=== PATIENT | male | born 1945 | race Caucasian/White ===

== ENCOUNTER 2019-04-26 01:03 | Inpatient (IN) | payer MEDICARE, OTHER ==
[2019-04-26] MEDS ORDERED: Nitroglycerin 0.4 MG TAB (25 Tab Bottle) ONE (01:53)
[2019-04-26] MEDS ORDERED: Aspirin Chewable 81 MG TAB ONE (01:53)
[2019-04-26] MEDS ORDERED: Morphine 4 MG/ML VIAL ONE ×2 (01:53→03:02)
[2019-04-26] MEDS ORDERED: Ondansetron PF 4 MG/2 ML Vial ONE ×2 (02:00→11:31)
[2019-04-26] MEDS ORDERED: Piperacillin/Tazobactam 3.375 GM VIAL ONE (02:26)
[2019-04-26] MEDS ORDERED: Sodium Chloride 0.9% 100 ML ONE (02:27)
[2019-04-26 02:40] LABS: #Basophils 0.2 thou/uL (0.0-0.2); #Lymphocytes 1.7 thou/uL (1.20-3.40); #Monocytes 0.6 thou/uL (0.11-0.59); #Neutrophils 10.8 thou/uL (1.40-6.50); %Basophils 1.7 % (0.0-1.0); %Lymphocytes 12.6 % (21.0-51.0); %Monocytes 4.2 % (0.0-10.0); %Neutrophils 81.6 % (42.0-75.0); Hemoglobin 10.7 g/dL (14.0-18.0); Mean Corpuscular Hemoglobin 25.2 pg (27.0-31.0); Mean Corpuscular Volume 74.1 fL (78.0-98.0); Mean Platelet Volume 14.1 fL (7.4-10.4); Platelet Count 554 thou/uL (130-400); RBC Distribution Width 19.6 % (11.5-14.5); Red Blood Cell (RBC) Count 4.25 mill/uL (4.70-6.10); White Blood Cell (WBC) Count 13.2 thou/uL (4.8-10.8)
[2019-04-26 02:50] LABS: Anisocytosis SLIGHT = 6-15 cells (100X) (0-5/hpf); MDiff Complete? YES; Platelet Clumps MODERATE; Platelet Morphology Comment Appears Increased
[2019-04-26] MEDS ORDERED: metroNIDAZOLE 500 MG/100 ML BAG ONE (03:06)
[2019-04-26 03:08] LABS: ALT (SGPT) 15 U/L (8-55); AST (SGOT) 17 U/L (5-34); Alkaline Phosphatase 81 U/L (40-150); Anion Gap 18 mmol/L (10-20); BUN (Urea Nitrogen) 27 mg/dL (8.4-25.7); Bilirubin, Total 0.7 mg/dL (0.2-1.2); CK (CPK) 77 U/L (30-200); Calc. Creatinine Clearance 0 mL/min (70-130); Calcium 9.8 mg/dL (7.8-10.44); Carbon Dioxide 24 mmol/L (23-31); Chloride 98 mmol/L (98-107); Estimated GFR-MDRD 45; Globulin 3.7 g/dL (2.4-3.5); Glucose 133 mg/dL (83-110); Lipase 15 U/L (8-78); Potassium 4.5 mmol/L (3.5-5.1); Protein, Total 7.7 g/dL (5.8-8.1); Sodium 135 mmol/L (136-145)
[2019-04-26] MEDS ORDERED: Fentanyl 250 MCG/5 ML VIAL ONE (03:33)
[2019-04-26] MEDS ORDERED: Lidocaine 2% Jelly 5 ML TUBE ONE (03:33)
[2019-04-26] MEDS ORDERED: Bupivacaine/Epinephrine 0.25% 30 ML VIAL ONE (04:41)
--- NOTE | 2019-04-26 05:09 | HP ---
CHIEF COMPLAINT: Abdominal pain and shortness of breath. HISTORY OF PRESENT ILLNESS: Mr. Chung is a 74-year-old man who reports waking up yesterday morning around 5:30 a.m. feeling like he could not get comfortable and that when he took a deep breath, it was stretching his diaphragm in an uncomfortable way. He moved around quite a bit to find a position that was more comfortable, but even then whenever he took a deep breath, he had the abdominal discomfort. He began to feel short of breath, so he came into the emergency room last night and a plain film of the abdomen showed free-air. CT of the chest, abdomen, and pelvis were obtained. The CTA of the chest was negative for PE, but did confirm the free- air. Abdomen and pelvis showed free-air and free-fluid in the abdomen with some thickening near the gastrojejunal junction. Patient has a history of gastric bypass in 2002 and laparotomy for bowel obstruction in 2016. He received IV Zosyn and was transferred to [facility] for further care. Patient denies any fevers, chills, nausea, vomiting, or change in his bowel habits and really only complains of abdominal pain when he moves in certain ways or takes a deep breath. PAST MEDICAL HISTORY: Prostate cancer; bladder cancer; morbid obesity, which resolved after his gastric bypass in 2002, he lost 160 pounds and has kept it off. He also smokes daily about a pack a day and drinks daily 3 to 4 drinks per day, but reports no history of shakes or withdrawal or detox. PAST SURGICAL HISTORY: Laparoscopic gastric bypass in 2002, laparotomy for bowel obstruction in 2016, transurethral bladder tumor resection by Dr. Toni Alejandro in 2016. He did not undergo prostate surgery but had definitive radiation and Lupron therapy for his prostate cancer. Also, repair of a femur fracture in 2016. MEDICATIONS: None. He takes no prescription medications and does not use tiyd-evx-worytll medications on a regular basis. He specifically denies any recent use of NSAIDs, although he did receive one aspirin in the emergency room when he presented. ALLERGIES: NO KNOWN DRUG ALLERGIES. REVIEW OF SYSTEMS: Ten system review of systems is negative, except per HPI. LABORATORY DATA: White count is elevated at 13.2; hematocrit is 31.5, which is down from around 40 two years ago; and platelets are 554, which is up slightly. BUN and creatinine are 27 and 1.52, which is slightly elevated. Sodium is 135, which is a little low. I do not have any priors for comparison. Albumin is normal at 4. LFTs and other electrolytes are normal. CT images are reviewed and I agree with the written reports. ASSESSMENT: Bowel perforation with free-air and free-fluid. Suspect a marginal ulcer based on CT results. PLAN: Laparoscopic versus open repair of bowel perforation with possible bowel resection and possible ostomy depending on the source. Patient has received IV antibiotics and has been posted emergently for surgery. Inherent risks of surgery include, but are not limited to, bleeding, infection, risks of anesthesia, damage to nearby structures including bowel and blood vessels, and possible leak of any attempted repair. He understands and accepts these risks and wishes to proceed. All of his questions were answered. Of note, he had some irregularity and thickening of his bladder and will require outpatient urologic followup for this given his known history of bladder cancer. His previous urologist has retired. Job ID: [id number] [facility]
[2019-04-26] MEDS ORDERED: Promethazine HCl 25 MG/ML VIAL IM PRN ×2 (05:58→06:32)
[2019-04-26] MEDS ORDERED: Ondansetron HCl/PF 4 MG/2 ML Vial IVP PRN (05:58)
[2019-04-26] MEDS ORDERED: HYDROmorphone 2 MG/ML VIAL SLOW IVP PRN (05:58)
[2019-04-26] MEDS ORDERED: Promethazine HCl 25 MG/ML VIAL SLOW IVP PRN (05:58)
[2019-04-26] MEDS ORDERED: Morphine 4 MG/ML VIAL SLOW IVP PRN (06:32)
[2019-04-26] MEDS ORDERED: hydrALAZINE 20 MG/ML VIAL SLOW IVP PRN (06:32)
[2019-04-26] MEDS ORDERED: Dextrose 50% Abboject 50 ML SYRINGE SLOW IVP PRN (06:32)
[2019-04-26] MEDS ORDERED: Dextrose 5% in Water 1,000 ML IV PRN (06:32)
[2019-04-26] MEDS ORDERED: Ondansetron PF 4 MG/2 ML Vial IVP PRN (06:32)
[2019-04-26] MEDS ORDERED: Morphine 2 MG/ML SYRINGE SLOW IVP PRN (06:36)
[2019-04-26] MEDS ORDERED: Acetaminophen 1,000 MG in Premix Bag 1 BAG IVPB SCH (06:45)
--- NOTE | 2019-04-26 07:38 | OP ---
DATE OF PROCEDURE: 04/26/2019 PROCEDURE PERFORMED: Laparoscopic Mirza patch of gastrojejunal ulcer and abdominal washout. PREOPERATIVE DIAGNOSIS: Bowel perforation. POSTOPERATIVE DIAGNOSIS: Marginal ulcer at gastrojejunal junction. HISTORY: Mr. Chung is a 74-year-old man with a history of gastric bypass 15 years ago. He presented with a 24-hour history of abdominal pain and shortness of breath, and was found to have free air on chest x-ray. CT showed free air and free fluid with some thickening at the gastrojejunal junction. Recommendation was made to proceed to the operating room for laparoscopic washout and repair with possible bowel resection or ostomy if other pathology was found. DESCRIPTION OF PROCEDURE: After informed consent was obtained and appropriate preoperative antibiotics administered, the patient was taken to the operating room. He was placed in supine position and general endotracheal anesthesia was administered. He was prepped and draped in a standard sterile fashion and local anesthesia infused through the skin and subcutaneous tissues of the upper midline. A 5 mm incision was made and a Veress needle placed into the abdominal cavity without difficulty. Opening pressure was 3. Carbon dioxide gas easily insufflated to an intraabdominal pressure of 15, which the patient tolerated well. The Veress needle was withdrawn and a ClearVUE port advanced under direct laparoscopic vision into the abdominal cavity, which was carefully examined. The patient was noted to have slightly purulent peritonitis centered in the upper abdomen near the gastrojejunal junction. Additional dissecting trocars were placed in the right abdomen and the area carefully examined. The purulent fluid was suctioned out of the abdominal cavity and sent for Gram stain and culture. Some omental adhesions were taken down from the anterior midline and the area of the gastric pouch carefully examined. Evidence of perforation anteriorly was noted. The tissues posteriorly appeared soft and normal. The upper abdomen was irrigated to clear and the omentum, which had previously been adherent to the anterior abdominal wall, was brought up to the area of the gastrojejunal junction. This reached easily without tension and was well vascularized and healthy. A Mirza patch repair was performed over the gastrojejunal junction using a 3-0 Vicryl suture with excellent technical result. The abdomen was then copiously irrigated. In order to adequately suction in the pelvis, an additional trocar was placed in the right mid abdomen. Once all return was clear, 2 VALERIE drains were placed, 1 to the subphrenic space on the right and 1 to the pelvis. The other dissecting port was removed and hemostasis was verified. Carbon dioxide gas allowed to deflate through the upper midline trocar, which was then removed. The fascial edges of the dissecting trocar sites were easily visible due to the patient's thin body habitus. These were repaired with 0 Vicryl suture on UR6 needle under direct vision with excellent technical result. The skin was closed with 4-0 subcuticular Monocryl sutures and Dermabond dressings applied. The drains were secured with drain stitches and gauze and Tegaderm dressings placed. The patient was extubated and taken to Recovery in good condition. ESTIMATED BLOOD LOSS: Minimal. COMPLICATIONS: There were no complications. SPECIMEN: Peritoneal fluid for Gram stain and culture. Job ID: [id number] [facility]
[2019-04-26] MEDS: Piperacillin/Tazobactam 3.375 GM in Sodium Chloride 0.9% 100 ML IVPB SCH ×3 (08:51→20:26)
[2019-04-26] MEDS ORDERED: Famotidine/PF 20 mg/2ml Vial SLOW IVP SCH (09:00)
[2019-04-26] MEDS: D5 1/2 NS w/20 mEq KCL 1,000 ML IV SCH ×2 (09:01→15:00)
[2019-04-26 09:11] VITALS: BMI 19.1
--- NOTE | 2019-04-26 09:17 | CT ---
PRELIMINARY REPORT/[facility]/EMERGENCY AFTER HOURS PROCEDURE: Addendum created by Felicity Ashraf MD on 04/26/2019 3:48 AM Central Time ([place] & [place]) THIS REPORT C ONTAINS FINDINGS THAT MAY BE CRITICAL TO PATIENT CARE. The findings were verbally communicated via kim villalta conference with SHANTE CAMEJO at 3:48 AM CDT on 04/26/2019. The findings were acknowledged and understood. Initial Report created on 04/26/2019 3:24 AM Central Time ([place] & [place]) EXAM: CT Abdomen and Pelvis With Contrast EXAM DATE/TIME: 04/26/2019 2:06 AM CLINICAL HISTORY: 74 years old, male; Abdominal pain; Prior surgery; Surgery date: 6+ months; Surgery type: Gastric byp ass 2015; Patient HX: Epigastric pain when taking in a deep breath. Hs of gastric bypass in 2016 TECHNIQUE: Imaging protocol: Axial computed tomography images of the abdomen and pelvis with intravenous contras t. Coronal and sagittal reformatted images were created and reviewed. Radiation optimization: All CT scans at this facility use at least one of these dose optimization zelda hniques: automated exposure control; mA and/or kV adjustment per patient size (includes targeted exam s where dose is matched to clinical indication); or iterative reconstruction. Contrast material: [id number]; Contrast volume: 95 ml; Contrast route: IV; COMPARISON: No relevant prior studies available. FINDINGS: Lungs: No consolidations in the lung bases. Liver: No liver masses. Gallbladder and bile ducts: Normal appearance of the gallbladder. No ductal dilation. Pancreas: No pancreatic mass or ductal dilation. Spleen: No splenic masses. Adrenals: Bilateral adrenal gland thickening and enhancement. Kidneys and ureters: No enhancing mass or hydronephrosis. Stomach and bowel: Surgical changes of gastric bypass. No bowel obstruction. Thickening of the small gastric pouch and proximal jejunum at the gastrojejunal anastomosis. Appendix: The appendix is not identified. Intraperitoneal space: Large amount of free peritoneal air predominantly in the upper anterior abdome n. Small amount of free fluid in the pelvis. Vasculature: Marked atherosclerotic changes of the abdominal aorta and vasculature within infrarenal abdominal aortic aneurysm measuring up to 3.7 cm. The celiac, superior mesenteric artery and inferior mesenteric arteries are patent. Lymph nodes: No lymphadenopathy. Bladder: Irregular thickening of the bladder wall. Reproductive: Normal. Bones/joints: No suspicious bone lesions. Soft tissues: No acute findings. IMPRESSION: 1. Large amount of free peritoneal air and small amount of fluid in the pelvis. Site of perforation i s not identified; however there is thickening of the small gastric pouch and proximal gastrojejunal a nastomosis making this suspicious for site of perforation. There is no bowel obstruction. Surgical ch anges of gastric bypass. 2. Infrarenal abdominal aortic aneurysm measuring up to 3.7 cm. 3. Irregular and heterogeneous thickening of the bladder. Thank you for allowing us to participate in the care of your patient. Dictated and Authenticated by: Felicity Ashraf MD 04/26/2019 3:24 AM Central Time ([place] & [place]) FINAL REPORT ABDOMEN CT WITH CONTRAST PELVIC CT WITH CONTRAST: Date: 04/26/19 HISTORY: Gastric bypass in 2016. Epigastric pain. Chest pain. Pain upon inspiration. FINDINGS: Lung bases appear to be clear. There are coronary artery calcifications, as well as calcifications of mitral valve. There is appropriate enhancement of the solid organs. No evidence of obstructive uropathy. There is a neurysmal dilatation of the infrarenal abdominal aorta, measuring 3.4 x 3.7 cm. No periaortic fat str anding. Limited evaluation of the alimentary canal due to lack of oral contrast. There is extensive free air. The etiology is uncertain, may be associated with region of gastric bypa ss. Fullness of both adrenal glands is nonspecific. Correlate for adrenal hyperplasia. There is free fluid in the pelvis. IMPRESSION: This report is in agreement with the preliminary report by [facility]. There is evidence of intraperitoneal free air. Etiology is uncertain, but may be associated with the gastric bypass. Additional findings as described in the preliminary report by [facility]. POS: OFF
--- NOTE | 2019-04-26 09:25 | CT ---
PRELIMINARY REPORT/[facility]/EMERGENCY AFTER HOURS PROCEDURE: EXAM: CT Angiography Chest With Contrast EXAM DATE/TIME: 04/26/2019 2:06 AM CLINICAL HISTORY: 74 years old, male; Pain and condition or disease; Other: Hs of prostate cancer; Sternal or substerna l pain; Patient HX: Epigastric pain when breathing deep. TECHNIQUE: Imaging protocol: Axial computed tomographic angiography images of the chest with intravenous contras t using CT angiography protocol. Coronal and sagittal reformatted images were created and reviewed. 3D rendering: MIP reconstructed images were created and reviewed. Radiation optimization: All CT scans at this facility use at least one of these dose optimization zelda hniques: automated exposure control; mA and/or kV adjustment per patient size (includes targeted exam s where dose is matched to clinical indication); or iterative reconstruction. COMPARISON: No relevant prior studies available. FINDINGS: Pulmonary arteries: No pulmonary emboli. Aorta: No aortic aneurysm. No aortic dissection. Lungs: No consolidations. Pleural space: No pneumothorax or pleural effusion. Heart: The heart is within normal size limits. No abdnormal pericardial effusion. Intraperitoneal space: See CT abdomen and pelvis report for upper abdomen findings including large am ount of free peritoneal air. Lymph nodes: No lymphadenopathy. Bones/joints: No suspicious bone lesions or fracture. Soft tissues: Superficial 3 x 1 cm left anterior chest nodule, possibly a sebaceous cyst. IMPRESSION: 1. No evidence of a pulmonary embolism. 2. Large amount of free peritoneal air in the upper abdomen. There is a gastric bypass and the gastri c pouch and proximal jejunum at the anastomosis are thickened and there are several foci of air in th is area making this the most likely source of perforation. Additional findings in the abdomen and pelvis on separate report. Thank you for allowing us to participate in the care of your patient. Dictated and Authenticated by: Felicity Ashraf MD 04/26/2019 3:32 AM Central Time ([place] & [place]) FINAL REPORT EMERGENCY AFTER HOURS CT ANGIO CHEST PERFORMED WITH IV CONTRAST ENHANCEMENT WITH 3D RECONSTRUCTIONS: Date: 04/26/19 HISTORY: Patient has history of prostate cancer, chest pain, and shortness of breath when taking a deep breath . FINDINGS: The lungs are clear of any infiltrative process. COPD type changes are noted. No pulmonary nodules or pleural effusions are identified. There is no significant mediastinal or hilar lymphadenopathy. The thoracic aorta is normal in caliber. There is good pulmonary artery opacification and no CT evide nce for pulmonary embolus. Free intraperitoneal air is seen. This will be described in the subsequent CT abdomen report. IMPRESSION: 1. No CT evidence for pulmonary embolus. 2. Free intraperitoneal air. These findings will be described in the CT abdomen and pelvis report. This report is in agreement with the preliminary report issued by [facility].
[2019-04-26] MEDS ORDERED: Iopamidol 370 76% 100 ML VIAL ONE (11:22)
[2019-04-26] MEDS ORDERED: PROPOFOL 200 MG/20 ML VIAL ONE (11:31)
[2019-04-26] MEDS ORDERED: PHENYLEPHRINE-NS 100 MCG/ML 10 ML SYRINGE ONE (11:31)
[2019-04-26] MEDS ORDERED: Succinylcholine Chloride 20 MG/ML 10 ml SYRINGE FS ONE (11:31)
[2019-04-26] MEDS ORDERED: Rocuronium Bromide 10 MG/ML (10ML VIAL) ONE (11:31)
[2019-04-26] MEDS ORDERED: Lidocaine 1% PF 5 ML VIAL ONE (11:31)
[2019-04-26] MEDS ORDERED: Dexamethasone 20 MG/5 ML VIAL ONE (11:31)
[2019-04-26] MEDS ORDERED: Glycopyrrolate 0.2 MG/ML 5 ML SYRINGE ONE (11:31)
--- NOTE | 2019-04-26 12:01 | RAD ---
CHEST 1 VIEW: Date: 04/26/19 HISTORY: Pain. COMPARISON: None. FINDINGS: Normal cardiac silhouette. Atherosclerosis of aortic knob. Lungs are hyperinflated with chronic zendejas es. There is evidence of pneumoperitoneum. IMPRESSION: Pneumoperitoneum. POS: OFF
[2019-04-26] MEDS ORDERED: Tamsulosin HCl 0.4 MG CAP PO SCH (12:45)
[2019-04-26] MEDS: Oxazepam 10 MG CAP PO SCH ×2 (15:59→20:30)
[2019-04-26] MEDS: Micafungin 100 MG in Sodium Chloride 0.9% 100 ML IVPB SCH (16:27)
--- NOTE | 2019-04-26 16:36 | PRG ---
DATE OF SERVICE: 04/26/2019 SUBJECTIVE: This is a 74-year-old male patient, came in with a chief complaint of abdominal pain and shortness of breath. The patient was found to have gastric ulcer perforation. The patient was just brought back from the OR this morning from laparoscopic gastric ulcer perforation repair with Mirza patch of gastro- jejunum and abdominal washout. The patient has no complaints of fever, nausea, or vomiting. The patient did not pass gas yet. Pain is well controlled. The patient is able to void 30 mL since this morning. Bladder scan 4 hours after being brought back from the OR is 250 mL. OBJECTIVE: GENERAL: The patient is lying down comfortably. No signs of acute distress. The patient reports pain is well controlled, around 3/10. VITAL SIGNS: Temperature 97, pulse 68, respiratory rate 14, O2 saturations 97% on room air, blood pressure 140/70. LUNGS: Clear bilaterally. HEART: Regular rate and rhythm. ABDOMEN: Soft. Bowel sounds are diminished. EXTREMITIES: Unremarkable. LABORATORY DATA: Hemoglobin 10.7. Sodium 135, potassium 4.5, creatinine 1.5, glucose 133. DIAGNOSTIC IMAGING: There is no diagnostic imaging to be reported. ASSESSMENT: 1. Gastric ulcer perforation. 2. Postoperative day 0 laparoscopic Mirza patch at gastro-jejunum. 3. Status post gastric bypass, 2002. 4. History of prostate cancer. 5. History of heavy alcohol use. PLAN: Continue liquid diet. The patient is able to pass gas and tolerate well with liquid diet. Continue pain control. Start prophylaxis, gastritis and DVT. Follow up urine output. If the patient is unable to void and bladder scan more than 400 and the patient becomes uncomfortable, we would do in-and-out catheter. We just started Flomax to treat prostate hypertrophy. The patient is to work with PT and OT. The patient was examined and discussed with Dr. Wang on rounds this morning. Patient was started on alcohol use withraw prevention with xerax, thiamin, acid folic Job ID: [id number] [facility]
[2019-04-26] MEDS: Enoxaparin Sodium 30 MG/0.3 ML SYRINGE SC SCH (20:26)
[2019-04-26] MEDS: Pantoprazole 40 MG VIAL IVP SCH (20:27)
[2019-04-26] MEDS: Tamsulosin HCl 0.4 MG CAP PO SCH (20:27)
[2019-04-27] MEDS: D5 1/2 NS w/20 mEq KCL 1,000 ML IV SCH ×3 (00:32→20:28)
[2019-04-27] MEDS: Piperacillin/Tazobactam 3.375 GM in Sodium Chloride 0.9% 100 ML IVPB SCH ×4 (02:19→20:37)
[2019-04-27 07:58] LABS: ALT (SGPT) 10 U/L (8-55); AST (SGOT) 9 U/L (5-34); Albumin 2.9 g/dL (3.4-4.8); Alkaline Phosphatase 54 U/L (40-150); Anion Gap 9 mmol/L (10-20); BUN (Urea Nitrogen) 20 mg/dL (8.4-25.7); Bilirubin, Total 0.3 mg/dL (0.2-1.2); Calc. Creatinine Clearance 42 mL/min (70-130); Calcium 8.3 mg/dL (7.8-10.44); Carbon Dioxide 26 mmol/L (23-31); Chloride 104 mmol/L (98-107); Estimated GFR-MDRD 51; Globulin 2.9 g/dL (2.4-3.5); Glucose 108 mg/dL (83-110); Potassium 4.5 mmol/L (3.5-5.1); Protein, Total 5.8 g/dL (5.8-8.1); Sodium 134 mmol/L (136-145)
[2019-04-27 08:05] LABS: Hemoglobin 9.1 g/dL (14.0-18.0); Mean Corpuscular HGB CONC 29.4 g/dL (32.0-36.0); Mean Corpuscular Hemoglobin 24.7 pg (27.0-31.0); Mean Corpuscular Volume 83.9 fL (78.0-98.0); Mean Platelet Volume 9.3 fL (7.4-10.4); Platelet Count 317 thou/uL (130-400); RBC Distribution Width 17.7 % (11.5-14.5); Red Blood Cell (RBC) Count 3.67 mill/uL (4.70-6.10); White Blood Cell (WBC) Count 9.8 thou/uL (4.8-10.8)
[2019-04-27] MEDS: Thiamine 100 MG TAB PO SCH (08:10)
[2019-04-27] MEDS: Oxazepam 10 MG CAP PO SCH ×3 (08:10→20:37)
[2019-04-27] MEDS: Folic Acid 1 MG TAB PO SCH (08:10)
[2019-04-27] MEDS: Pantoprazole 40 MG VIAL IVP SCH ×2 (08:13→20:38)
[2019-04-27] MEDS ORDERED: Famotidine/PF 20 mg/2ml Vial SLOW IVP SCH (09:00)
[2019-04-27 10:01] LABS: #Lymphocytes 1.7 thou/uL (1.20-3.40); #Monocytes 0.6 thou/uL (0.11-0.59); #Neutrophils 7.5 thou/uL (1.40-6.50); %Basophils 0.2 % (0.0-1.0); %Eosinophils 0.3 % (0.0-10.0); %Lymphocytes 17.3 % (21.0-51.0); %Monocytes 6.1 % (0.0-10.0); %Neutrophils 76.1 % (42.0-75.0); Hypochromia MODERATE=16-30 cells (100X) (0-5/hpf); MDiff Complete? YES; Microcytosis MODERATE=15-30 cells (100X) (0-5/hpf); Platelet Morphology Comment Appears Adequate
--- NOTE | 2019-04-27 11:31 | RAD ---
XR UGI Single Contrast No Air HISTORY: Patient with a history of gastric bypass in 2002 for weight loss. Recent perforation and Gra ham patch procedure. COMPARISON: CT of 04/26/2019. FINDINGS: 15 mL of Gastrografin were given for this examination. Previous gastric bypass is noted. Co ntrast passed into the small bowel without difficulty. No evidence of extravasation. IMPRESSION: No evidence of obstruction or extravasation.
[2019-04-27] MEDS ORDERED: GASTROGRAFIN 30 ML BOT ONE (11:47)
[2019-04-27] MEDS: Micafungin 100 MG in Sodium Chloride 0.9% 100 ML IVPB SCH (15:38)
[2019-04-27] MEDS: Tamsulosin HCl 0.4 MG CAP PO SCH (20:38)
[2019-04-27] MEDS: Enoxaparin Sodium 30 MG/0.3 ML SYRINGE SC SCH (20:51)
[2019-04-28] MEDS: Piperacillin/Tazobactam 3.375 GM in Sodium Chloride 0.9% 100 ML IVPB SCH ×4 (01:05→20:44)
[2019-04-28] MEDS: D5 1/2 NS w/20 mEq KCL 1,000 ML IV SCH (01:06)
[2019-04-28] MEDS: Thiamine 100 MG TAB PO SCH (08:39)
[2019-04-28] MEDS: Pantoprazole 40 MG VIAL IVP SCH ×2 (08:39→20:45)
[2019-04-28] MEDS: Folic Acid 1 MG TAB PO SCH (08:39)
[2019-04-28] MEDS: Oxazepam 10 MG CAP PO SCH ×3 (08:39→20:44)
[2019-04-28] MEDS: Micafungin 100 MG in Sodium Chloride 0.9% 100 ML IVPB SCH (15:00)
--- NOTE | 2019-04-28 16:39 | PDOC.GSPN ---
Surgery Progress Note: Subj - Subjective Narrative: Patient feels fine. Minimal pain. Serous VALERIE drainage. Cultures are growing presumed Vivian albicans. He is on micafungin. Tolerating full liquids. Abdomen is soft and incisions are clean. We'll advance to GI soft diet. If he tolerates this, we may remove the JPs discharge him home tomorrow. I did speak with him about tobacco and alcohol cessation to reduce his risk of recurrent ulcer disease. He will need to stay on PPI therapy long-term. I will give him a couple months prescription but he will need to establish care with a primary care physician to prescribe this ongoing. I would also like to check him for H. pylori, so asked him to call the nurse to collect the specimen when he feels like he needs to have a bowel movement. He has been passing gas but has not yet had a bowel movement. Surgery Progress Note: Obj - Vital signs Vital signs: Vital Signs - Most Recent Temp Pulse Resp BP Pulse Ox 98.0 F 71 14 167/88 H 95 04/28/19 15:09 04/28/19 15:09 04/28/19 15:09 04/28/19 15:09 04/28/19 15:09 Surgery Progress Note: Results - Labs Result Diagrams: 04/27/19 07:04 04/27/19 07:04
[2019-04-28] MEDS: Tamsulosin HCl 0.4 MG CAP PO SCH (20:45)
[2019-04-28] MEDS: Enoxaparin Sodium 30 MG/0.3 ML SYRINGE SC SCH (21:07)
[2019-04-29] MEDS: Piperacillin/Tazobactam 3.375 GM in Sodium Chloride 0.9% 100 ML IVPB SCH ×4 (01:03→21:00)
[2019-04-29 05:32] LABS: #Basophils 0.1 thou/uL (0.0-0.2); #Eosinphils 0.2 thou/uL (0.0-0.7); #Lymphocytes 1.7 thou/uL (1.20-3.40); #Monocytes 0.7 thou/uL (0.11-0.59); %Basophils 0.8 % (0.0-1.0); %Eosinophils 3.4 % (0.0-10.0); %Lymphocytes 25.5 % (21.0-51.0); %Monocytes 10.9 % (0.0-10.0); %Neutrophils 59.4 % (42.0-75.0); Hemoglobin 8.8 g/dL (14.0-18.0); Mean Corpuscular HGB CONC 29.7 g/dL (32.0-36.0); Mean Corpuscular Volume 84.1 fL (78.0-98.0); Platelet Count 347 thou/uL (130-400); RBC Distribution Width 17.4 % (11.5-14.5); Red Blood Cell (RBC) Count 3.52 mill/uL (4.70-6.10); White Blood Cell (WBC) Count 6.7 thou/uL (4.8-10.8)
[2019-04-29 05:46] LABS: ALT (SGPT) 7 U/L (8-55); AST (SGOT) 9 U/L (5-34); Albumin 2.5 g/dL (3.4-4.8); Alkaline Phosphatase 49 U/L (40-150); Anion Gap 11 mmol/L (10-20); BUN (Urea Nitrogen) 8 mg/dL (8.4-25.7); Bilirubin, Total 0.4 mg/dL (0.2-1.2); Calc. Creatinine Clearance 47 mL/min (70-130); Calcium 8.2 mg/dL (7.8-10.44); Carbon Dioxide 24 mmol/L (23-31); Chloride 106 mmol/L (98-107); Estimated GFR-MDRD 59; Globulin 2.6 g/dL (2.4-3.5); Glucose 85 mg/dL (83-110); Potassium 4.2 mmol/L (3.5-5.1); Protein, Total 5.1 g/dL (5.8-8.1); Sodium 137 mmol/L (136-145)
--- NOTE | 2019-04-29 08:14 | PRG ---
DATE OF SERVICE: 04/27/2019 SUBJECTIVE: The patient is a 74-year-old male with a past history of gastric bypass on 2002, who was admitted with abdominal pain. Patient was diagnosed and lactoscopic for gastric perforation and wash out. How the patient is today. The patient explains that he is doing well today Ambulating, yes. Nausea and vomiting, none.. Pain, none. Fever, none. Having bowel movements, yes. Passing gas, yes. OBJECTIVE: VITAL SIGNS: Current temperature 98, current heart rate 88, current blood pressure 120/80, current respiratory rate 18, current O2 sat 98% room air. In and out; p.o. intake, poor intake PHYSICAL EXAMINATION: GENERAL: Well-appearing and relaxed patient. HEENT: Normocephalic, atraumatic. CARDIOVASCULAR: Regular rate and rhythm. Clear S1/S2 heard. RESPIRATORY: No respiratory distress. LUNGS: Clear to auscultation bilaterally. ABDOMEN: Soft. Nontender. Nondistended. EXTREMITIES: Warm and well perfused. NEUROLOGIC: Intact neurological. Oriented x3. IMAGING RESULTS: No new imaging to be reviewed. ASSESSMENT: The patient is a 74-year-old male with a past history of gastric bypass 15 years ago, who was admitted with abdominal pain. Clinical workup currently is notable for gastric perforation status gastric bypass PLAN: Based upon the information above, the following should be done to advance the care of the patient that fall into various category. Diagnostic tests/studies to be ordered BMP Pharmacological management. Interventions to be ordered/performed none, Other management to be conducted. Working with PT/OT. Spirometer incentive. DVT prophylaxis. Gastritis prophylaxis. Placement plan. Rehab screening is in place. Plan to discharge to rehab facility April 28, 2019 Job ID: [id number] [facility]
[2019-04-29] MEDS: Oxazepam 10 MG CAP PO SCH ×3 (08:17→21:28)
[2019-04-29] MEDS: Thiamine 100 MG TAB PO SCH (08:18)
[2019-04-29] MEDS: Pantoprazole 40 MG VIAL IVP SCH ×2 (08:18→21:28)
[2019-04-29] MEDS: Folic Acid 1 MG TAB PO SCH (08:23)
--- NOTE | 2019-04-29 14:38 | PDOC.GSPN ---
Surgery Progress Note: Subj - Subjective Narrative: Patient feels well. He is tolerating his soft diet without abdominal pain or nausea. VALERIE drainage is diminishing and is clear in color. Abdomen is soft and nontender and his incisions are healing. Assessment/plan: Doing well; from a surgical standpoint ready for discharge home , but his friends are concerned about his safety at home. He lives alone and does not have any help, and they feel that he is too weak to take care of himself. They were hoping that he could go to rehabilitation before returning home. I'm not certain that he is a rehabilitation candidate, but we will get PT OT and rehabilitation to evaluate him for this. Other options for discharge are : home with home health PT, or discharge to a nursing unit with PT. I will ask case management to help with discharge planning also. Surgery Progress Note: Obj - Vital signs Vital signs: Vital Signs - Most Recent Temp Pulse Resp BP Pulse Ox 97.4 F L 58 L 16 159/91 H 95 04/29/19 07:28 04/29/19 07:28 04/29/19 07:28 04/29/19 07:28 04/29/19 08:35 Surgery Progress Note: Results - Labs Result Diagrams: 04/29/19 04:36 04/29/19 04:36 Lab results: Laboratory Results - last 24 hr 04/29/19 04/29/19 04:36 04:36 WBC 6.7 RBC 3.52 L Hgb 8.8 L Hct 29.6 L MCV 84.1 MCH 25.0 L MCHC 29.7 L RDW 17.4 H Plt Count 347 MPV 9.0 Neutrophils % 59.4 Lymphocytes % 25.5 Monocytes % 10.9 H Eosinophils % 3.4 Basophils % 0.8 Neutrophils # 4.0 Lymphocytes # 1.7 Monocytes # 0.7 H Eosinophils # 0.2 Basophils # 0.1 Sodium 137 Potassium 4.2 Chloride 106 Carbon Dioxide 24 Anion Gap 11 BUN 8 L Creatinine 1.20 Estimated GFR (MDRD) 59 Glucose 85 Calcium 8.2 Total Bilirubin 0.4 AST 9 ALT 7 L Alkaline Phosphatase 49 Serum Total Protein 5.1 L Albumin 2.5 L Globulin 2.6 Albumin/Globulin Ratio 1.0 L
[2019-04-29] MEDS: Micafungin 100 MG in Sodium Chloride 0.9% 100 ML IVPB SCH (17:41)
[2019-04-29] MEDS: Tamsulosin HCl 0.4 MG CAP PO SCH (21:28)
[2019-04-29] MEDS: Enoxaparin Sodium 30 MG/0.3 ML SYRINGE SC SCH (21:28)
[2019-04-30] MEDS: Piperacillin/Tazobactam 3.375 GM in Sodium Chloride 0.9% 100 ML IVPB SCH ×3 (03:00→15:57)
[2019-04-30] MEDS: Pantoprazole 40 MG VIAL IVP SCH (08:38)
[2019-04-30] MEDS: Oxazepam 10 MG CAP PO SCH ×3 (08:42→21:55)
[2019-04-30] MEDS: Thiamine 100 MG TAB PO SCH (08:42)
[2019-04-30] MEDS: Folic Acid 1 MG TAB PO SCH (08:42)
--- NOTE | 2019-04-30 14:15 | PDOC.GSPN ---
Surgery Progress Note: Subj - Subjective Narrative: Awaiting insurance decision regarding placement. Tolerating diet. Pelvic VALERIE still has a fair amount of drainage but this is completely clear and serous so we'll remove both drains today. Changing Protonix to oral. Incisions look good and H. pylori is negative. Abdominal exam is benign and vitals are normal. Dr. Flowers is going to be seeing the patient over the long holiday weekend. No new surgical issues. Surgery Progress Note: Obj - Vital signs Vital signs: Vital Signs - Most Recent Temp Pulse Resp BP Pulse Ox 97.8 F 67 16 139/85 96 04/30/19 10:38 04/30/19 10:38 04/30/19 10:38 04/30/19 10:38 04/30/19 10:38 Surgery Progress Note: Results - Labs Result Diagrams: 04/29/19 04:36 04/29/19 04:36
[2019-04-30] MEDS: Micafungin 100 MG in Sodium Chloride 0.9% 100 ML IVPB SCH (16:12)
[2019-04-30] MEDS: Tamsulosin HCl 0.4 MG CAP PO SCH (21:55)
[2019-04-30] MEDS: Enoxaparin Sodium 30 MG/0.3 ML SYRINGE SC SCH (22:43)
[2019-05-01] MEDS: Folic Acid 1 MG TAB PO SCH (08:39)
[2019-05-01] MEDS: Thiamine 100 MG TAB PO SCH (08:39)
[2019-05-01] MEDS: Oxazepam 10 MG CAP PO SCH ×3 (08:40→20:11)
--- NOTE | 2019-05-01 14:22 | PRG ---
DATE OF SERVICE: 05/01/2019 SUBJECTIVE: Mr. Chung is postoperative day #5 from a laparoscopic repair of gastrojejunal ulcer (from previous gastric bypass) per Dr. Allen on April 26. He has done well following the surgery. He is tolerating a diet. He is apparently a fairly heavy smoker and drinker, which of course predisposed him to this ulcer. He notes that he has ambulating the ash and tolerating a regular diet. He denies pain. OBJECTIVE: VITAL SIGNS: On examination, he is afebrile. Pulse 61, blood pressure 180/70. LUNGS: Clear to auscultation. ABDOMEN: Soft, nontender, and nondistended. Both of his drains were removed yesterday, and the dressings are intact. LABORATORY DATA: He has not had a CBC in 2 days nor he has had comprehensive metabolic panel, but these were both stable. ASSESSMENT AND PLAN: In summary, he is doing well following his surgery. Rehabilitation has been requested and placement is pending. Since today is May 01, I am hopeful that we will have a placement decision for him tomorrow. Job ID: [id number]
[2019-05-01] MEDS: Micafungin 100 MG in Sodium Chloride 0.9% 100 ML IVPB SCH (15:39)
[2019-05-01] MEDS: Tamsulosin HCl 0.4 MG CAP PO SCH (19:59)
[2019-05-01] MEDS: Enoxaparin Sodium 30 MG/0.3 ML SYRINGE SC SCH (20:05)
[2019-05-02 07:51] VITALS: TEMP 97.6
[2019-05-02] MEDS: Folic Acid 1 MG TAB PO SCH (08:24)
[2019-05-02] MEDS: Thiamine 100 MG TAB PO SCH (08:25)
[2019-05-02] MEDS: Oxazepam 10 MG CAP PO SCH (08:25)
[2019-05-02 11:11] VITALS: BP 131/64
--- NOTE | 2019-05-02 14:54 | DIS ---
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 PROCEDURES PERFORMED: Laparoscopic Mirza patch of gastrojejunal ulcer with abdominal washout per Dr. Allen on April 26. ADMISSION HISTORY: The patient is a 74-year-old male, who had a gastric bypass 15 years ago and sustained excellent weight loss. He presented with 24-hour history of abdominal pain and shortness of breath. He had free air visible on imaging studies. He was taken to the operating room for surgical treatment. HOSPITAL COURSE: The patient underwent uneventful laparoscopic surgery per Dr. Allen. She was able to identify the ulcer and repair it. She obtained an upper GI study the following day which showed no evidence of obstruction or extravasation. The patient was begun on diet which he tolerated well and advanced uneventfully. The patient had a history of alcoholism, for which he was started on Serax to help prevent withdrawal issues. He was also heavy smoker. He did well after surgery. He requested placement in an assisted living facility, and while this was being arranged, he was maintained in the hospital. He is doing well today. He is ambulating in the ash. He is tolerating his regular diet. He has had no vomiting or abdominal pain. He has benign abdominal exam. He is discharged to the [facility]. He will follow up with Dr. Allen next week. DISCHARGE MEDICATIONS: 1. Protonix daily. 2. Serax b.i.d. 3. Flomax. Job ID: [id number]
== END 2019-05-02 14:00 | disposition short-term general hospital (02) | DRG 329 ==
LOC: SDC 01:03 → SCSER 01:03 → EDSTATUS 03:33 → SURG A 07:42
PROVIDERS: ADMIT Surgery; ATTEND Surgery
PROC: 0DU947Z Supplement Duodenum with Autologous Tissue Substitute, Percutaneous Endoscopic Approach (ICD-10-PCS; principal; 2019-04-26)
DX: K28.5 Chronic or unspecified gastrojejunal ulcer with perforation (principal); K65.9 Peritonitis, unspecified; F10.20 Alcohol dependence, uncomplicated; F17.200 Nicotine dependence, unspecified, uncomplicated; Z98.84 Bariatric surgery status; Z90.49 Acquired absence of other specified parts of digestive tract; Z87.81 Personal history of (healed) traumatic fracture
CPT/HCPCS: 36415; 71045; 71275; 74177; 74241; 80053; 82550; 83605; 83690; 84484; 85025; 85379; 87070; 87205; 87338; 93005; 96365; 96375; 96376; C9113; J0131; J0360; J1100; J1650; J2001; J2248; J2270; J2405; J2543; J2704; J3010; J3490; Q9963; Q9967; S0028

== ENCOUNTER 2019-07-09 11:37 | Outpatient (CLI) | payer MEDICARE, OTHER ==
--- NOTE | 2019-07-09 13:47 | RAD ---
ONE VIEW ABDOMEN: 07/09/19 INDICATION: History of prior abdominal surgery, pain. FINDINGS: There are loops of air filled bowel of the abdomen, in a nonspecific pattern, with air distended smal l bowel and suggestion of colonic gas, as well. There are loops of bowel that demonstrate the appeara nce of potential mural edema which may be on the basis of an acute inflammatory process. No free air is seen beneath the hemidiaphragms on the provided view. The imaged lung bases are grossly clear. The re is suture material seen at the left upper quadrant. IMPRESSION: Air distended bowel throughout the abdomen. Component of mural edema may relate to an acute infectiou s/inflammatory process. Consider CT exam of abdomen and pelvis utilizing IV and enteric contrast, as necessary pending finding on physical exam. POS: [facility]
== END 2019-07-09 11:38 | disposition home or self-care (01) ==
LOC: SCSRAD 11:37
PROVIDERS: ATTEND Family Medicine
DX: R10.84 Generalized abdominal pain (principal); K63.89 Other specified diseases of intestine
CPT/HCPCS: 74018

== ENCOUNTER 2019-07-11 14:44 | Outpatient (CLI) | payer MEDICARE, OTHER ==
[~2019-07-11 14:44] MED LIST: ISOVUE-370 76%-LOCM 1 ML ONE
--- NOTE | 2019-07-11 16:41 | CT ---
CT ABDOMEN AND PELVIS WITH IV CONTRAST: 07/11/19 Oral contrast was also administered. Multiplanar reconstruction. INDICATIONS: Abdominal pain. COMPARISON: Comparison made to CT abdomen and pelvis 04/26/19. FINDINGS: The lung bases appear clear. Liver, spleen, and pancreas unremarkable. Patient is post gastric bypass procedure. The stomach and gastric jejunostomy appear unremarkable. No evidence of small bowel dilatation. Stomach and duodenum unremarkable. The mid and distal small parrish l loops are normal caliber. Colon unremarkable. Left colon is nondistended. The kidneys are unremarkable. Both adrenal glands are mildly prominent but stable in appearance. Urinary bladder is contracted and not well evaluated. There is a small amount of free fluid in the deep pelvis, similar to the prior exam. The aorta shows atherosclerotic calcification. The aortic aneurysm which was described previously is again seen and is unchanged in size continuing to measure 3.6 cm width in the axial plane. Atheroscle rotic changes with luminal stenosis in the iliac arteries again noted. Dense atherosclerotic calcifications at the origin of the superior mesenteric artery may be producing significant stenosis. However, no small bowel evidence of ischemia. IMPRESSION: 1. Free fluid in the deep pelvis is again noted, similar to the prior exam. 2. Abdominal aortic aneurysm with atherosclerotic changes in the aorta again seen as discussed a bjorn. 3. No evidence of acute process. POS: [facility]
== END 2019-07-11 14:45 | disposition home or self-care (01) ==
LOC: BICCT 14:44
PROVIDERS: ATTEND Family Medicine
DX: R10.84 Generalized abdominal pain (principal); I71.4 Abdominal aortic aneurysm, without rupture; I70.0 Atherosclerosis of aorta
CPT/HCPCS: 74177; 82565; Q9966

== ENCOUNTER 2019-09-18 15:04 | Inpatient (IN) | payer MEDICARE, OTHER ==
--- NOTE | 2019-09-18 15:45 | RAD ---
RADIOGRAPH CHEST 1 VIEW: DATE: 09/18/2019 HISTORY: 74-year-old male with dyspnea FINDINGS: There are no airspace densities, pulmonary edema, pneumothorax, or cardiomegaly. The lateral costophr enic angles are sharp. IMPRESSION: No acute cardiopulmonary findings.
[2019-09-18 16:12] LABS: #Monocytes 0.5 thou/uL (0.11-0.59); %Basophils 0.5 % (0.0-1.0); %Eosinophils 0.2 % (0.0-10.0); %Lymphocytes 11.2 % (21.0-51.0); %Monocytes 5.8 % (0.0-10.0); %Neutrophils 82.3 % (42.0-75.0); Hemoglobin 6.7 g/dL (14.0-18.0); Mean Corpuscular HGB CONC 31.2 g/dL (32.0-36.0); Mean Corpuscular Hemoglobin 25.4 pg (27.0-31.0); Mean Corpuscular Volume 81.2 fL (78.0-98.0); Mean Platelet Volume 8.6 fL (7.4-10.4); Platelet Count 361 thou/uL (130-400); RBC Distribution Width 17.7 % (11.5-14.5); Red Blood Cell (RBC) Count 2.64 mill/uL (4.70-6.10); White Blood Cell (WBC) Count 8.5 thou/uL (4.8-10.8)
[2019-09-18 16:17] LABS: INR-International Normal Ratio 1.1; PTT 26.9 SEC (22.9-36.1); Prothrombin Time 13.8 SEC (12.0-14.7)
[2019-09-18 16:56] LABS: ALT (SGPT) 10 U/L (8-55); AST (SGOT) 13 U/L (5-34); Albumin 3.2 g/dL (3.4-4.8); Alkaline Phosphatase 65 U/L (40-110); Anion Gap 12 mmol/L (10-20); BUN (Urea Nitrogen) 41 mg/dL (8.4-25.7); Bilirubin, Total 0.4 mg/dL (0.2-1.2); Calc. Creatinine Clearance 0 mL/min (70-130); Calcium 8.6 mg/dL (7.8-10.44); Carbon Dioxide 27 mmol/L (23-31); Chloride 102 mmol/L (98-107); Estimated GFR-MDRD 58; Globulin 2.9 g/dL (2.4-3.5); Glucose 121 mg/dL (83-110); Potassium 4.7 mmol/L (3.5-5.1); Protein, Total 6.1 g/dL (5.8-8.1); Sodium 136 mmol/L (136-145)
[2019-09-18] MEDS ORDERED: Pantoprazole 40 MG VIAL ONE (16:59)
[2019-09-18] MEDS ORDERED: Pantoprazole 80 MG in Sodium Chloride 0.9% 100 ML IVPB SCH (17:15)
--- NOTE | 2019-09-18 18:24 | CT ---
CT angiogram thorax with contrast CT angiogram abdomen with contrast: HISTORY: 74-year-old male with pulsatile abdominal mass, dyspnea, cough, and dizziness resulting in collapse. TECHNIQUE: IV injection of iodinated contrast. Arterial bolus chasing technique. Scan acquisition from top of aortic arch to iliac crests. 3-D MIP reconstructions. FINDINGS: There is a 3.5 x 3.8 cm fusiform distal abdominal aortic aneurysm. It has chronic mural thrombus on t he right side. This aneurysm appears minimally larger than it was on 04/26/2019. Heavy atherosclerotic calcification of distal abdominal aorta and bilateral common iliac arteries. 0.9 cm thrombosed focal saccular aneurysm protruding posteriorly from the proximal aspect of the righ t common iliac artery beginning at the aortic bifurcation. No aortic dissection. Mild ectasia and mild tortuosity of thoracic aorta. Heavy atherosclerotic calcification of left main, LAD, LCx, and RCA. No cardiomegaly or pericardial effusion. Diffuse thickening of the bilateral adrenal glands. No splenomegaly. Unremarkable pancreas. No major pathology of liver or kidneys identified, (within the limitations of an [id number] scan). No small bowel dilation. Lack of visceral fat limits evaluation of bowel. No pleural effusion or pneu mothorax. No consolidation or pulmonary edema. No cardiomegaly. There is not enough IV contrast in pulmonary arteries to evaluate for pulmonary thromboembolism. IMPRESSION: 1) minimal interval growth of 3.8 cm distal abdominal aortic fusiform aneurysm. 2) no aortic dissection or rupture. 3) coronary atherosclerosis due to calcified coronary lesion. 4) bilateral adrenal hyperplasia. 5) stable, thrombosed right common iliac artery aneurysm.
[2019-09-18] MEDS ORDERED: Bisacodyl 10 MG SUPP PR PRN (20:12)
[2019-09-18] MEDS ORDERED: Ondansetron PF 4 MG/2 ML Vial IVP PRN (20:12)
--- NOTE | 2019-09-18 20:57 | HP ---
PRIMARY CARE PROVIDER: Clinton Dia MD. CHIEF COMPLAINT: Lightheadedness. HISTORY OF PRESENT ILLNESS: Mr. Chung is a pleasant 74-year-old gentleman who was seen at [facility] on September 18, 2019. He was hospitalized at this facility from April 26 to May 02 of this year for perforated gastrojejunal ulcer from prior gastric bypass. He underwent repair of the ulcer laparoscopically. He reports that he continues to drink 2 or 3 beers a day, in the past he used to drink 6 pack a day. He also smokes 10-15 cigarettes a day. Today morning, he tried to get up and felt lightheaded. He tried to get up again. He felt lightheaded. One or the other times, he passed out a few seconds. He also reports having melenic stool today. He denies any abdominal pain. He denies any fevers. He denies any nausea or vomiting. The patient reports that he has lost 20 pounds weight over the last 1 year unintentionally. REVIEW OF SYSTEMS: All systems were reviewed and found to be negative except for the pertinent positives mentioned above. PAST MEDICAL HISTORY: Gastric ulcer. PAST SURGICAL HISTORY: Surgery for gastric ulcer perforation and gastric bypass surgery. SOCIAL HISTORY: The patient reports drinking 2-3 beers a day. He smokes 10-15 cigarettes a day. He denies any recreational drug use. FAMILY HISTORY: No family history of premature coronary artery disease. ALLERGIES: NO KNOWN DRUG ALLERGIES. CURRENT MEDICATIONS: The patient does not take any prescription medications. He reports using vitamin C, CBD oil, iron, vitamin B12, folate, and acidophilus. PHYSICAL EXAMINATION: GENERAL: Mr. Chung is awake and alert, not in acute distress. VITAL SIGNS: Blood pressure is 159/80, pulse 70, respiratory rate 15, and oxygen saturation 100% on room air. He is afebrile. EYES: He has conjunctival pallor, no scleral icterus. ENT: Moist mucosal membranes. No oropharyngeal erythema or exudates. NECK: Supple, nontender, trachea is midline. RESPIRATORY: Accessory muscles of breathing are not active. Chest wall movements are symmetric bilaterally. LUNGS: Clear to auscultation without wheeze, rhonchi, or crepitations. CARDIOVASCULAR: S1 and S2 are heard, regular. Peripheral pulses palpable. ABDOMEN: Soft, nontender, bowel sounds heard. NEUROLOGIC: Cranial nerves 2 through 12 are intact. MUSCULOSKELETAL: Power is 5/5 in all 4 extremities. SKIN: No rashes. LYMPHATIC: No cervical lymphadenopathy. PSYCHIATRIC: Normal mood, normal affect, the patient is oriented to person, place, and time. LABORATORY DATA: Mr. Chung's labs and investigations were reviewed. I reviewed his electrocardiogram which shows normal sinus rhythm, no ST changes to suggest an acute coronary syndrome. I also reviewed his chest x-ray which does not show any pulmonary infiltrates. CT dissection protocol showed 3.8 cm distal abdominal aortic fusiform aneurysm, no aortic dissection or rupture, coronary arthrosclerosis due to calcified coronary lesion, bilateral adrenal hyperplasia, and stable thrombosed right common iliac artery aneurysm. He has normal white count, normocytic anemia with hemoglobin 6.7, normal platelet count, INR 1.1, normal electrolytes, elevated blood urea nitrogen of 41, normal creatinine, decreased albumin of 3.2, otherwise unremarkable LFTs and normal troponin-I of 0.012. ASSESSMENT AND PLAN: Mr. Chung is a pleasant 74-year-old gentleman who was seen at [facility] on September 18, 2019. His problem list includes: 1. Symptomatic anemia: Mr. Chung is presenting with symptomatic anemia secondary to upper gastrointestinal bleed. He will be admitted to the hospital for further management. 2. Upper gastrointestinal bleed: Most likely recurrent bleed from known gastrojejunal ulcer. He has been started on a PPI drip which I will continue. We will transfuse packed RBCs. We will consult GI for opinion and help with management. 3. Alcohol abuse: The patient has been counseled regarding alcohol cessation. We will start the patient on ASE protocol. 4. Tobacco abuse: The patient has been counseled regarding tobacco cessation. We will start him on nicotine replacement therapy. Many thanks for allowing me to participate in your patient's care. Please feel free to contact me with any questions or concerns. LEVEL OF RISK: High. LEVEL OF COMPLEXITY: High. Job ID: [id number]
[2019-09-18 22:17] LABS: Hemoglobin 6.9 g/dL (14.0-18.0)
[2019-09-19 00:13] VITALS: BMI 16.6
[2019-09-19] MEDS: Sodium Chloride 0.9% 1,000 ML IV SCH ×3 (02:05→16:44)
--- NOTE | 2019-09-19 02:08 | CON ---
DATE OF CONSULTATION: 09/18/2019 REQUESTING PHYSICIAN: Dr. Laurent. REASON FOR CONSULTATION: GI bleeding. HISTORY OF PRESENT ILLNESS: Indio Chung is a 74-year-old man, previously seen by my GI colleague, Dr. Manny Ching. He has history of Jignesh-en-Y gastric bypass back in 2002, as well as chronic ongoing tobacco and alcohol use on the daily basis. In 2015, he underwent EGD and colonoscopy with Dr. Ching. At that time, he was noted to have an erosion at the gastrojejunal anastomosis and a single polyp in the ascending colon, which was removed in piecemeal fashion. He did not follow up for colonoscopy afterward at one-year interval that has had been recommended. He presented here in late March with peritonitis and on imaging was found to have perforated viscus. He was taken to the OR by Dr. Allen on 04/26/2019, and was found to have an ulcer at the gastrojejunal anastomosis, which was perforated. She performed Mirza patch repair of the ulcer. The patient did well afterward and was eventually discharged on Protonix. He says that he is continued on Protonix since that time. He has been noted to be anemic, but even as recently as last week, the anemia was stable and his hemoglobin was 10; however, this morning when he awoke, he felt dizzy and lightheaded and actually had a syncopal episode at home, suffering some minor abrasions to the upper extremities. Soon thereafter, he passed a single large black tarry stool, which is unusual for him. There was no abdominal pain or nausea associated with this. He has not passed any bowel movements since this morning. Upon presentation here, his vital signs have been stable without tachycardia or hypotension. He still feels better, when he is lying supine. Hemoglobin was found to be 6.7, which is a significant decline over the past week. He was started on a pantoprazole drip and is receiving 1 unit of RBC transfusion at this time. He has no other complaints. PAST MEDICAL HISTORY: 1. Gastric bypass in 2002. 2. Perforated gastrojejunal ulcer in March 2019, status post laparoscopic repair. 3. Peritonitis secondary to perforated gastrojejunal ulcer in April 2019. 4. Colon polyp in 2015. 5. Tobacco abuse. 6. Daily alcohol use. ALLERGIES: NO KNOWN DRUG ALLERGIES. OUTPATIENT MEDICATIONS: Protonix 40 mg daily. SOCIAL HISTORY: Daily tobacco and alcohol use. No drug use. FAMILY HISTORY: Noncontributory. PHYSICAL EXAMINATION: VITAL SIGNS: Temperature 98.1, pulse 87, blood pressure 176/87, and 95% oxygen saturation on room air. GENERAL: A 74-year-old man, lying comfortably supine in bed, in no acute distress. SKIN: He is pale. Several abrasions to the upper extremities. No jaundice. HEENT: Eyes, no scleral icterus. Extraocular movements intact. ENT, mucous membranes moist. No oral lesions. LYMPH: No submandibular or supraclavicular lymphadenopathy. Thyroid nontender to palpation. HEART: Regular rate and rhythm. LUNGS: Clear to auscultation bilaterally. ABDOMEN: Nondistended. Bowel sounds present. Soft, nontender to palpation. EXTREMITIES: No peripheral edema. VESSELS: Radial pulses 2+ bilaterally. NEURO: Cranial nerves 2 through 12 intact bilaterally. No focal deficits. LABORATORY STUDIES: WBC 8.5, hemoglobin 6.7, and platelets 361. INR 1.1. Sodium 136, potassium 4.7, BUN 41, and creatinine 1.21. Troponin negative. LFTs all normal with total bilirubin 0.4, alkaline phosphatase 65, AST 13, ALT 10, and albumin 3.2. IMAGING STUDIES: Chest x-ray shows no acute processes. CT with dissection protocol demonstrates no evidence of free air. No aortic dissection or rupture. 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 He has bilateral adrenal hyperplasia. ASSESSMENT AND PLAN: 1. Melena, single episode this morning. 2. Acute blood loss anemia, significant over the past week. 3. History of gastrojejunal ulcer with perforations, status post surgery in March 2019. The patient's presentation is consistent with significant acute bleeding, which sounds like it likely occurred early this morning. He has not passed any further melena since then, and is currently hemodynamically stable. I suspect that he may have continued ulceration at the gastrojejunal anastomosis and that this is the likely source of his bleeding. I agree with RBC transfusion as well as Protonix drip. Given his clinical stability at this point, I would advise admission to the monitored unit, and we will plan to perform diagnostic and possibly therapeutic EGD tomorrow. If the patient has significant change in clinical status, please call anytime and we could potentially perform the procedure more emergently. Obviously, the patient would benefit from complete tobacco cessation as this is a risk factor for continued anastomotic ulcerations. He says he has been taking the Protonix since his prior hospitalization. Job ID: [id number]
[2019-09-19] MEDS: Pantoprazole 80 MG in Sodium Chloride 0.9% 100 ML IVPB SCH (04:36)
[2019-09-19 06:20] LABS: #Lymphocytes 1.9 thou/uL (1.20-3.40); #Monocytes 0.7 thou/uL (0.11-0.59); #Neutrophils 5.1 thou/uL (1.40-6.50); %Basophils 0.6 % (0.0-1.0); %Eosinophils 0.5 % (0.0-10.0); %Lymphocytes 24.2 % (21.0-51.0); %Monocytes 9.3 % (0.0-10.0); %Neutrophils 65.3 % (42.0-75.0); Hemoglobin 8.3 g/dL (14.0-18.0); Mean Corpuscular HGB CONC 32.3 g/dL (32.0-36.0); Mean Corpuscular Hemoglobin 26.8 pg (27.0-31.0); Mean Platelet Volume 8.5 fL (7.4-10.4); Platelet Count 295 thou/uL (130-400); Red Blood Cell (RBC) Count 3.11 mill/uL (4.70-6.10); White Blood Cell (WBC) Count 7.9 thou/uL (4.8-10.8)
[2019-09-19 06:36] LABS: Anion Gap 9 mmol/L (10-20); BUN (Urea Nitrogen) 34 mg/dL (8.4-25.7); Calc. Creatinine Clearance 44 mL/min (70-130); Calcium 8.5 mg/dL (7.8-10.44); Carbon Dioxide 27 mmol/L (23-31); Chloride 104 mmol/L (98-107); Estimated GFR-MDRD 64; Glucose 75 mg/dL (83-110); Potassium 4.3 mmol/L (3.5-5.1); Sodium 136 mmol/L (136-145)
[2019-09-19] MEDS ORDERED: PROPOFOL 200 MG/20 ML VIAL ONE (11:09)
[2019-09-19] MEDS ORDERED: EPINEPHrine 1 MG/10 ML Abboject SYRINGE ONE (11:09)
--- NOTE | 2019-09-19 17:10 | PDOC.HOSPP ---
- Subjective Encounter Date: 09/19/19 Encounter Time: 17:09 Subjective: Pt seen for followup re: symptomatic anemia. Feels better. - Objective Vital Signs & Weight: Vital Signs (12 hours) Temp Pulse Ox 09/19/19 15:13 98.3 F 09/19/19 13:48 97.8 F 09/19/19 07:32 99 09/19/19 07:16 97.5 F L Weight Admit Weight 122 lb 6.4 oz Weight 122 lb 6.4 oz Most Recent Monitor Data Heart Rate from ECG 63 NIBP 149/75 NIBP BP-Mean 99 Respiration from ECG 10 SpO2 95 I&O: 09/18/19 09/19/19 09/20/19 06:59 06:59 06:59 Intake Total 350 Output Total 300 Balance 350 -300 Result Diagrams: 09/19/19 05:50 09/19/19 05:50 Additional Labs: Labs and MARs reviewed by me EKG Reviewed by me: Yes (Tele: NSR) Hospitalist ROS - Review of Systems Cardiovascular: denies: chest pain, palpitations, orthopnea, paroxysmal noc. dyspnea, edema, light headedness Gastrointestinal: denies: nausea, vomiting, abdominal pain, diarrhea, constipation, melena, hematochezia - Medication Medications: Active Medications Generic Name Dose Route Start Last Admin Trade Name Freq PRN Reason Stop Dose Admin Pantoprazole Sodium 80 mg/ 100 mls @ 10 mls/hr 09/18/19 20:00 09/19/19 04:36 Sodium Chloride IVPB 100 mls INF FRANTZ Administration Sodium Chloride 1,000 mls @ 70 mls/hr 09/18/19 20:30 09/19/19 16:44 Normal Saline 0.9% IV 1,000 mls .[id number] FRANTZ Administration - Exam General - other findings: appears malnourished Eye: anicteric sclera ENT: no oropharyngeal lesions Neck: supple Heart: RRR Respiratory: CTAB Gastrointestinal: soft, non-tender Extremities: no cyanosis Musculoskeletal: normal tone, normal strength, diffuse muscle atrophy Psychiatric: normal affect, normal behavior Hosp A/P (1) Symptomatic anemia Code(s): D64.9 - ANEMIA, UNSPECIFIED Status: Acute (2) Acute blood loss anemia Code(s): D62 - ACUTE POSTHEMORRHAGIC ANEMIA Status: Acute (3) UGIB (upper gastrointestinal bleed) Code(s): K92.2 - GASTROINTESTINAL HEMORRHAGE, UNSPECIFIED Status: Acute (4) Gastrojejunal ulcer Code(s): K28.9 - GASTROJEJUNAL ULCER, UNSP ACUTE OR CHR, W/O HEMOR OR PERF Status: Chronic (5) Severe protein-calorie malnutrition Code(s): E43 - UNSPECIFIED SEVERE PROTEIN-CALORIE MALNUTRITION Status: Chronic (6) Alcohol abuse Code(s): F10.10 - ALCOHOL ABUSE, UNCOMPLICATED Status: Chronic (7) Tobacco abuse Code(s): Z72.0 - TOBACCO USE Status: Chronic - Plan DVT proph w/SCDs s/p EGD. Continue protonix. Continue nicotine patch. Counseled pt re: tobacco and alcohol cessation. Start PPN, Ensure Enlive BID. Transition to regular diet when advancing diet.
--- NOTE | 2019-09-19 19:02 | OP ---
DATE OF PROCEDURE: 09/19/2019 SHIP SURVEYOR SURGEON: None. PROCEDURE PERFORMED: EGD with control of hemorrhage. INDICATION: Melena and acute blood loss anemia, in a patient with a known history of ulceration at gastrojejunal anastomosis. MEDICATIONS: See Anesthesia record. DESCRIPTION OF PROCEDURE: After discussion of the risks, benefits, and alternatives of the procedure, informed consent was obtained and witnessed. Pre-endoscopic cardiopulmonary examination was satisfactory. Time-out was performed before sedation was achieved. Sedation was achieved with Anesthesia assistance in the endoscopy unit. A Pentax adult therapeutic upper endoscope was placed into the oropharynx and passed through the cricopharyngeus under direct visualization. The esophageal mucosa appeared normal throughout with a normal-appearing Z-line. The endoscope was advanced into the gastric pouch. This is a small gastric pouch. Retroflexion was performed. The gastric pouch appeared normal. The endoscope was advanced to the level of the gastrojejunal anastomosis, which is at 50 cm from the incisors. At this anastomosis, there is a very large deep crater ulceration, involving over half of the circumference of the lumen in this area. There is extensive overlying blood clot and slow oozing of blood around the base of the clot. I quickly passed the scope beyond this area and down efferent limb of jejunum to a distance of 80 cm, with normal-appearing small bowel mucosa, the endoscope was then withdrawn back to the level of the large ulcer. I injected 8 mL of submucosal epinephrine around the base of the ulcer in a 4-quadrant fashion, with fairly good blanching effect. At this point, I used the injector apparatus to gently remove as much clot as I could from this large ulcer base. I was able to remove most of the clot from the ulcer base, revealing essentially diffusely necrotic appearing quite friable large ulcer base with no discrete visible vessel, but rather generalized oozing from essentially the entire ulcer bed. As there was no discrete bleeding vessel to treat, I did not perform any cautery on this examination. The upper endoscope was completely withdrawn and the patient allowed to recover. The patient tolerated the procedure well. There were no immediate postprocedure complications. IMPRESSION: Large deep ulceration at the gastrojejunal anastomosis at 50 cm, involving over half the circumference of the lumen, with overlying clot and slow oozing from the entire ulcer base. Injected with 8 mL submucosal epinephrine. After clot removal, no single discrete bleeding vessel was visualized to treat, but rather oozing from the entire friable deep ulcer base. RECOMMENDATION: 1. Continue the IV PPI drip. 2. Monitor H and H. 3. Clear liquid diet. 4. If the patient has evidence of further significant bleeding, then he will require surgical consultation for consideration of revision of this anastomosis. He is going to be at high risk for recurrent bleeding as well as recurrent spontaneous perforation as happened last March. 5. The patient must stop smoking. Job ID: [id number]
[2019-09-20] MEDS: Pantoprazole 80 MG in Sodium Chloride 0.9% 100 ML IVPB SCH ×3 (02:53→20:39)
[2019-09-20 04:53] LABS: #Basophils 0.1 thou/uL (0.0-0.2); #Eosinphils 0.1 thou/uL (0.0-0.7); #Lymphocytes 1.7 thou/uL (1.20-3.40); #Monocytes 0.8 thou/uL (0.11-0.59); #Neutrophils 6.8 thou/uL (1.40-6.50); %Basophils 0.5 % (0.0-1.0); %Lymphocytes 17.9 % (21.0-51.0); %Monocytes 8.6 % (0.0-10.0); %Neutrophils 71.9 % (42.0-75.0); Hemoglobin 7.7 g/dL (14.0-18.0); Mean Corpuscular HGB CONC 32.5 g/dL (32.0-36.0); Mean Corpuscular Hemoglobin 27.2 pg (27.0-31.0); Mean Corpuscular Volume 83.7 fL (78.0-98.0); Mean Platelet Volume 8.1 fL (7.4-10.4); Platelet Count 301 thou/uL (130-400); RBC Distribution Width 16.1 % (11.5-14.5); Red Blood Cell (RBC) Count 2.83 mill/uL (4.70-6.10); White Blood Cell (WBC) Count 9.5 thou/uL (4.8-10.8)
[2019-09-20 04:55] LABS: Anion Gap 10 mmol/L (10-20); BUN (Urea Nitrogen) 22 mg/dL (8.4-25.7); Calc. Creatinine Clearance 56 mL/min (70-130); Carbon Dioxide 24 mmol/L (23-31); Chloride 107 mmol/L (98-107); Estimated GFR-MDRD 84; Glucose 107 mg/dL (83-110); Potassium 3.7 mmol/L (3.5-5.1); Sodium 137 mmol/L (136-145)
[2019-09-20] MEDS ORDERED: Acetaminophen 325 MG TAB PO PRN (09:11)
[2019-09-20] MEDS ORDERED: Folic Acid 1 MG TAB PO SCH (09:15)
[2019-09-20] MEDS ORDERED: Thiamine 100 MG TAB PO SCH (09:15)
[2019-09-20] MEDS ORDERED: Cyanocobalamin (Vitamin B-12) 1,000 MCG TAB PO SCH (09:15)
--- NOTE | 2019-09-20 11:57 | PRG ---
DATE OF SERVICE: 09/20/2019 SUBJECTIVE: This is a 74-year-old male, who has had GI bleeding and underwent EGD by Dr. Hanson yesterday. He was found to have a large anastomotic ulcer with bleeding. The ulcer base was injected with epinephrine. He had done well overnight. He is basically passing flatus. He has had no stool yesterday. He has . No abdominal pain. No nausea or vomiting. He offers no complaints. PHYSICAL EXAMINATION: GENERAL: He appears comfortable. He is thin built. VITAL SIGNS: Afebrile. Pulse is 63 and blood pressure 143/82. CARDIOVASCULAR SYSTEM: First and second heart sounds normal. LUNGS: Clear to auscultation. ABDOMEN: Soft. Abdomen is nontender. No organomegaly. No masses. LABORATORY DATA: Blood count did drop down from 8.3 to 7.7 and hematocrit 23.7. Chemistry panel; chem-7 is normal, BUN is 22 and creatinine 0.88. RECOMMENDATIONS: 1. Advance diet to regular diet. 2. Follow up hemoglobin and hematocrit. Job ID: [id number]
--- NOTE | 2019-09-20 17:56 | PRG ---
DATE OF SERVICE: 09/20/2019 SUBJECTIVE: He says he feels better today. OBJECTIVE: VITAL SIGNS: He is afebrile. Blood pressure 149/75, heart rate is in the 60s. LUNGS: Clear. HEART: Regular rhythm. ABDOMEN: Soft and nontender. LABORATORY DATA: Hemoglobin 7.7 today. Electrolytes are normal. An endoscopy yesterday showed a large deep ulceration at the gastrojejunal anastomosis with clot and slow oozing, this was injected. He appears to be reasonably stable at this point in time. He is felt to be at high risk for recurrent bleeding. As he is stable and out of the critical care environment at this time, we will sign off. If he should require surgery in the future or any further intervention, we will be happy to see him again. Job ID: [id number]
--- NOTE | 2019-09-20 22:32 | CON ---
DATE OF CONSULTATION: 09/19/2019 HISTORY OF PRESENT ILLNESS: Mr. Chung is a 74-year-old male admitted to the intermediate care unit for GI blood loss. He has a history of a gastric bypass anastomotic ulcer in the past. He admits that he has been taking his supplements and has been taking his proton pump inhibitor. He presented with GI blood loss. Again, he is tentatively on the schedule for endoscopy. PAST MEDICAL HISTORY: Remarkable for; 1. Weight loss surgery. 2. History of gastric ulcer perforation in the past. 3. History of gastric bypass surgery. SOCIAL HISTORY: He is 2 to 3 beer a day drinker. He smokes half pack a day. ALLERGIES: HE HAS NO DRUG ALLERGIES. FAMILY HISTORY: Negative for lung disease in early age. REVIEW OF SYSTEMS: Otherwise negative. He says he has felt reasonably well since he has been admitted to the hospital. OBJECTIVE: VITAL SIGNS: He is afebrile. His vital signs have been stable. Blood pressure is 149/75, heart rate in the 60s, respiratory rates in the teens. HEAD AND NECK: Unremarkable. LUNGS: Clear. HEART: Regular rhythm. ABDOMEN: Soft and nontender. EXTREMITIES: Without clubbing, cyanosis, or edema. NEUROLOGIC: Nonfocal. LABORATORY DATA: Hemoglobin was 6.7 on the , 6.9 on followup, 8.3 on the . Electrolytes were normal. BUN was 41, likely secondary to blood in his GI tract. IMPRESSION: Gastrointestinal blood loss. PLAN: Endoscopy per Gastroenterology. Serial hematocrits. Transfusions as necessary. IV proton pump inhibitors. He will need at some point start on his nutritional supplements that he should be taking with his gastric bypass surgery. Job ID: [id number] 50 minute consult with 50% of time on unit coordinating care MTDFelipe
[2019-09-21] MEDS: Pantoprazole 80 MG in Sodium Chloride 0.9% 100 ML IVPB SCH ×2 (05:10→18:13)
[2019-09-21] MEDS: Nicotine 14 MG PATCH TD PRN (05:11)
[2019-09-21 05:53] LABS: Hemoglobin 7.1 g/dL (14.0-18.0)
[2019-09-21] MEDS: pyridOXINE 50 MG (B6) TAB PO SCH (07:49)
[2019-09-21] MEDS: Cyanocobalamin (Vitamin B-12) 1,000 MCG TAB PO SCH (07:49)
[2019-09-21] MEDS: Multivit, Therapeutic 1 TAB PO SCH (07:49)
[2019-09-21] MEDS: Thiamine 100 MG TAB PO SCH (07:50)
[2019-09-21] MEDS: Folic Acid 1 MG TAB PO SCH (07:50)
--- NOTE | 2019-09-21 09:08 | PDOC.HOSPP ---
- Subjective Encounter Date: 09/20/19 Encounter Time: 10:00 Subjective: Patient seen and examined for GIB. No BMs overnight. No new complaints. - Objective Vital Signs & Weight: Vital Signs (12 hours) Temp Pulse Resp BP Pulse Ox 09/21/19 07:51 98.1 F 85 16 123/69 99 Weight Admit Weight 122 lb 6.4 oz Weight 122 lb 6.4 oz Most Recent Monitor Data Heart Rate from ECG 63 NIBP 144/76 NIBP BP-Mean 98 Respiration from ECG 10 SpO2 95 I&O: 09/20/19 09/21/19 09/22/19 06:59 06:59 06:59 Intake Total 1080 Output Total 300 950 Balance -300 130 Result Diagrams: 09/21/19 05:31 09/20/19 04:19 Hospitalist ROS - Review of Systems Respiratory: denies: cough, dry, shortness of breath, hemoptysis, SOB with excertion, pleuritic pain, sputum, wheezing, other Cardiovascular: denies: chest pain, palpitations, orthopnea, paroxysmal noc. dyspnea, edema, light headedness, other - Medication Medications: Active Medications Generic Name Dose Route Start Last Admin Trade Name Freq PRN Reason Stop Dose Admin Cyanocobalamin 1,000 mcg 09/21/19 09:00 09/21/19 07:49 Vitamin B-12 PO 1,000 mcg DAILY FRANTZ Administration Folic Acid 1 mg 09/21/19 09:00 09/21/19 07:50 Folvite PO 1 mg DAILY FRANTZ Administration Pantoprazole Sodium 80 mg/ 100 mls @ 10 mls/hr 09/18/19 20:00 09/21/19 05:10 Sodium Chloride IVPB 100 mls INF FRANTZ Administration Multivitamins 1 tab 09/21/19 09:00 09/21/19 07:49 Theragran PO 1 tab DAILY FRANTZ Administration Nicotine 14 mg 09/20/19 09:11 09/21/19 05:11 Nicoderm Patch TD 14 mg Q24HR PRN Administration Smoking craving Pyridoxine HCl 50 mg 09/21/19 09:00 09/21/19 07:49 Vitamin B 6 PO 50 mg DAILY FRANTZ Administration Thiamine HCl 100 mg 09/21/19 09:00 09/21/19 07:50 Thiamine PO 100 mg DAILY FRANTZ Administration - Exam General Appearance: NAD Heart: RRR, no gallops Respiratory: CTAB, no rales Gastrointestinal: soft, non-distended, normal bowel sounds Extremities: no edema Hosp A/P - Plan DVT proph w/SCDs UGI bleed due to PUD Acute blood loss Anemia s/p 2 unit PRBC Chronic Alcoholism Tobacco dep PLAN: Monitor HH Cont PPI drip AM labs Counselled on alcohol and tobacco cessation Add MVM
[2019-09-21] MEDS ORDERED: Iron, Sodium Ferric Gluconate 250 MG in Sodium Chloride 0.9% 100 ML IVPB SCH (10:30)
--- NOTE | 2019-09-21 12:51 | PDOC.HOSPP ---
- Subjective Encounter Date: 09/21/19 Encounter Time: 11:30 Subjective: Patient seen and examined for GIB. No new hematochezia/melena. No new complaints. No overnight events - Objective Vital Signs & Weight: Vital Signs (12 hours) Temp Pulse Resp BP Pulse Ox 09/21/19 11:47 85 144/74 H 09/21/19 11:35 85 153/72 H 09/21/19 07:51 98.1 F 85 16 123/69 99 Weight Admit Weight 122 lb 6.4 oz Weight 122 lb 6.4 oz Most Recent Monitor Data Heart Rate from ECG 63 NIBP 144/76 NIBP BP-Mean 98 Respiration from ECG 10 SpO2 95 I&O: 09/20/19 09/21/19 09/22/19 06:59 06:59 06:59 Intake Total 1080 360 Output Total 300 950 Balance -300 130 360 Result Diagrams: 09/21/19 05:31 09/20/19 04:19 Hospitalist ROS - Review of Systems Respiratory: denies: cough, dry, shortness of breath, hemoptysis, SOB with excertion, pleuritic pain, sputum, wheezing, other Cardiovascular: denies: chest pain, palpitations, orthopnea, paroxysmal noc. dyspnea, edema, light headedness, other - Medication Medications: Active Medications Generic Name Dose Route Start Last Admin Trade Name Nikosq PRN Reason Stop Dose Admin Cyanocobalamin 1,000 mcg 09/21/19 09:00 09/21/19 07:49 Vitamin B-12 PO 1,000 mcg DAILY FRANTZ Administration Folic Acid 1 mg 09/21/19 09:00 09/21/19 07:50 Folvite PO 1 mg DAILY FRANTZ Administration Pantoprazole Sodium 80 mg/ 100 mls @ 10 mls/hr 09/18/19 20:00 09/21/19 05:10 Sodium Chloride IVPB 100 mls INF FRANTZ Administration Multivitamins 1 tab 09/21/19 09:00 09/21/19 07:49 Theragran PO 1 tab DAILY FRANTZ Administration Nicotine 14 mg 09/20/19 09:11 09/21/19 05:11 Nicoderm Patch TD 14 mg Q24HR PRN Administration Smoking craving Pyridoxine HCl 50 mg 09/21/19 09:00 09/21/19 07:49 Vitamin B 6 PO 50 mg DAILY FRANTZ Administration Thiamine HCl 100 mg 09/21/19 09:00 09/21/19 07:50 Thiamine PO 100 mg DAILY FRANTZ Administration - Exam General Appearance: NAD Heart: RRR, no gallops Respiratory: CTAB, no ronchi Gastrointestinal: soft, non-tender, non-distended, normal bowel sounds, no guarding, no rigidity Extremities: no edema Hosp A/P - Plan DVT proph w/SCDs UGI bleed due to PUD s/p EGD Acute blood loss Anemia s/p 2 unit PRBC Chronic Alcoholism Tobacco dep PLAN: Cont PPI drip IV iron HH in AM On Regular diet AM labs
--- NOTE | 2019-09-21 20:08 | PRG ---
DATE OF SERVICE: 09/21/2019 SUBJECTIVE: This is a 74-year-old male, hospitalized because of GI bleeding and had an EGD done by Dr. Hua Hanson. He was found to have a very large anastomotic ulcer, underwent injection of epinephrine. He has done well over the last couple of days. He has no abdominal pain. No nausea or vomiting. He is tolerating regular diet. He has had no black tarry stool. Blood count did drop down slowly from 8.3 to 7.7 and today 7.1. Hematocrit 22.3. He has received IV iron infusion today. PHYSICAL EXAMINATION: GENERAL: He is thin built. VITAL SIGNS: He is afebrile. Pulse is 85, blood pressure 123/69. CARDIOVASCULAR: Within normal limits. LUNGS: Within normal limits. ABDOMEN: Soft. No organomegaly. No tenderness. No masses. Bowel sounds normal. CLINICAL IMPRESSION: 1. Anastomotic ulcer, status post injection of epinephrine. 2. Anemia due to blood loss. RECOMMENDATION: 1. Diet as tolerated. 2. Repeat CBC tomorrow and if stable, consider discharge home tomorrow. Job ID: [id number]
[2019-09-22] MEDS: Pantoprazole 80 MG in Sodium Chloride 0.9% 100 ML IVPB SCH ×3 (03:37→23:25)
[2019-09-22] MEDS: Nicotine 14 MG PATCH TD PRN (05:25)
[2019-09-22 06:47] LABS: Hemoglobin 7.5 g/dL (14.0-18.0); Platelet Count 300 thou/uL (130-400)
[2019-09-22] MEDS: Thiamine 100 MG TAB PO SCH (08:22)
[2019-09-22] MEDS: Folic Acid 1 MG TAB PO SCH (08:22)
[2019-09-22] MEDS: pyridOXINE 50 MG (B6) TAB PO SCH (08:22)
[2019-09-22] MEDS: Cyanocobalamin (Vitamin B-12) 1,000 MCG TAB PO SCH (08:22)
[2019-09-22] MEDS: Multivit, Therapeutic 1 TAB PO SCH (08:22)
--- NOTE | 2019-09-22 18:59 | PRG ---
DATE OF SERVICE: 09/22/2019 SUBJECTIVE: Mr. Chung has had no further bleeding. He is eating regular diet. OBJECTIVE: VITAL SIGNS: Temperature 98, pulse 61, blood pressure 117/65. GENERAL: He is resting comfortably in bed. No distress. LABORATORY DATA: Hemoglobin was 7.5 today. ASSESSMENT: Gastrointestinal hemorrhage secondary to anastomotic ulcer, large. This is an ischemic ulcer, likely related to ongoing smoking. This is gastrojejunal anastomosis. RECOMMENDATIONS: We can place him on a PPI and sent him home with Carafate as well for 8 weeks, but whether or not this heals is going to depend on whether or not he stops smoking and drinking alcohol. The three main causes of ulcers at anastomotic areas after bariatric surgery are NSAIDs, alcohol, and smoking. Without cessation of these, this will not heal. I have explained this the patient. If it does not heal, he should expect increased risk of perforation and hemorrhage again, and likely a need for repeat surgery with removal of his gastric pouch and gastrojejunal anastomosis. He understands these issues and is going to try his best. At this time, we will sign off. Please do not hesitate to contact me if I can be of any assistance. Job ID: [id number]
[2019-09-22] MEDS: Sucralfate 1 GM/10 ML UDCUP PO SCH (20:26)
--- NOTE | 2019-09-23 07:14 | PDOC.HOSPP ---
- Subjective Encounter Date: 09/22/19 Encounter Time: 16:00 Subjective: Patient seen and examined for GIB. No N/V or hematemesis. No new complaints. No overnight events - Objective Vital Signs & Weight: Vital Signs (12 hours) Temp Pulse Resp BP Pulse Ox 09/22/19 20:00 98.4 F 70 19 144/78 H 98 Weight Admit Weight 122 lb 6.4 oz Weight 122 lb 6.4 oz Most Recent Monitor Data Heart Rate from ECG 63 NIBP 144/76 NIBP BP-Mean 98 Respiration from ECG 10 SpO2 95 I&O: 09/22/19 09/23/19 09/24/19 06:59 06:59 06:59 Intake Total 2260 750 Output Total 1750 1200 Balance 510 -450 Result Diagrams: 09/22/19 06:09 09/20/19 04:19 Hospitalist ROS - Review of Systems Respiratory: denies: cough, dry, shortness of breath, hemoptysis, SOB with excertion, pleuritic pain, sputum, wheezing, other Cardiovascular: denies: chest pain, palpitations, orthopnea, paroxysmal noc. dyspnea, edema, light headedness, other - Medication Medications: Active Medications Generic Name Dose Route Start Last Admin Trade Name Freq PRN Reason Stop Dose Admin Cyanocobalamin 1,000 mcg 09/21/19 09:00 09/22/19 08:22 Vitamin B-12 PO 1,000 mcg DAILY FRANTZ Administration Folic Acid 1 mg 09/21/19 09:00 09/22/19 08:22 Folvite PO 1 mg DAILY FRANTZ Administration Pantoprazole Sodium 80 mg/ 100 mls @ 10 mls/hr 09/18/19 20:00 09/22/19 23:25 Sodium Chloride IVPB 100 mls INF FRANTZ Administration Multivitamins 1 tab 09/21/19 09:00 09/22/19 08:22 Theragran PO 1 tab DAILY FRANTZ Administration Nicotine 14 mg 09/20/19 09:11 09/22/19 05:25 Nicoderm Patch TD 14 mg Q24HR PRN Administration Smoking craving Pyridoxine HCl 50 mg 09/21/19 09:00 09/22/19 08:22 Vitamin B 6 PO 50 mg DAILY FRANTZ Administration Sucralfate 1 gm 09/22/19 21:00 09/22/19 20:26 Carafate PO 1 gm QID-WM FRANTZ Administration Thiamine HCl 100 mg 09/21/19 09:00 09/22/19 08:22 Thiamine PO 100 mg DAILY FRANTZ Administration - Exam General Appearance: NAD Neck: supple, no JVD Heart: RRR, no gallops Respiratory: CTAB, no rales Gastrointestinal: soft, non-tender, non-distended, normal bowel sounds Extremities: no edema Hosp A/P - Plan DVT proph w/SCDs UGI bleed due to PUD s/p EGD Acute blood loss Anemia s/p 2 unit PRBC Chronic Alcoholism Tobacco dep Moderate PEM - POA PLAN: Cont PPI drip Sucralfate added HH in AM Cont other meds Appreciate Adjunct Professor Of Law input Patient will buy vitamins OTC (list provided by Adjunct Professor Of Law) Counselled on lifestyle modifications
[2019-09-23 07:28] VITALS: BP 135/75; TEMP 98.2
[2019-09-23 07:55] LABS: Hemoglobin 8.1 g/dL (14.0-18.0)
[2019-09-23] MEDS: Sucralfate 1 GM/10 ML UDCUP PO SCH (08:19)
[2019-09-23] MEDS: Multivit, Therapeutic 1 TAB PO SCH (08:19)
[2019-09-23] MEDS: pyridOXINE 50 MG (B6) TAB PO SCH (08:19)
[2019-09-23] MEDS: Folic Acid 1 MG TAB PO SCH (08:19)
[2019-09-23] MEDS: Cyanocobalamin (Vitamin B-12) 1,000 MCG TAB PO SCH (08:19)
[2019-09-23] MEDS: Thiamine 100 MG TAB PO SCH (08:19)
[2019-09-23] MEDS: Nicotine 14 MG PATCH TD PRN (08:26)
--- NOTE | 2019-09-23 10:28 | DIS ---
DATE OF ADMISSION: 09/18/2019 DATE OF DISCHARGE: 09/23/2019 FINAL DIAGNOSES: At the time of discharge; 1. Upper gastrointestinal bleeding due to peptic ulcer disease, status post esophagogastroduodenoscopy. 2. Acute blood loss anemia status post 2 units of packed red blood cell transfusion. 3. Chronic alcoholism. 4. Tobacco dependence. 5. Moderate PEM - POA. 6. History of gastric ulcer and perforation and gastric bypass surgery. CONSULTANTS: Dr. Hanson and Dr. De Luna and Dr. Ching for Gastrointestinal Service. PROCEDURE: Per Dr. Hanson, esophagogastroduodenoscopy. Findings, large deep ulceration at the gastrojejunal anastomosis at 50 cm involving over half the circumference of lumen with overlying clot and slow oozing from entire ulcer base injected with 8 mm submucosal epinephrine. HOSPITAL COURSE: The patient is a 74-year-old male, who was admitted to the hospital with lightheadedness, he passed out for few seconds. He had melenic stools on that day. He denied any abdominal pain, fevers, or nausea and vomiting. He has 20 pounds weight loss over the last year, which was unintentional. While in the emergency room, his white cell count was normal. Hemoglobin was 6.7 and platelet count was normal. INR 1.1. Electrolytes within normal limits. BUN was 41 and creatinine was normal. Albumin 3.2. Unremarkable LFTs. Troponin I 0.012. His EKG showed normal sinus rhythm, no ST changes. 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 No aortic dissection or rupture. 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 He was admitted to the floor for symptomatic anemia secondary to upper gastrointestinal bleed. He was started on PPI, transfused with packed red blood cells. GI was consulted and he was counseled regarding alcohol cessation. The patient was seen by Dr. Hanson, who did EGD, which showed large deep ulceration at the gastrojejunal anastomosis at 50 cm involving over half the circumference of the lumen with overlying clot and slow oozing from the entire ulcer base. This was injected with 8 mm of submucosal epinephrine. The patient was continued on Protonix drip postprocedure. He had total of 2 units of packed red blood cells transfused. His hemoglobin is up to 7.5 yesterday and the day before was 7.1. He is doing well. He does not have complaints to offer. He moved his bowels this morning and this was normal bowel movement. He is able to ambulate. He does not feel lightheaded anymore. His blood pressure is 135/75, pulse is 61, temperature is 98.2, respirations 18, and O2 saturation 97% on room air. He is seen and examined before he is discharged. He is going to stay on regular diet. He is going to quit smoking. He is informed that he needs to avoid NSAIDs, only use Tylenol. ACTIVITIES: As tolerated. MEDICATIONS: His medications at the time of discharge; 1. Sucralfate 1 g four times a day x8 weeks. 2. Pantoprazole 40 mg twice a day x8 weeks. 3. Multivitamin one a day. 4. Nicotine patch 14 mg once a day. CONDITION: He is discharged in good condition. FOLLOWUP: He is going to follow up with the primary care physician in a week and he will call Dr. Hanson's office in the next few days and set up followup appointment. TIME SPENT: Time spent on this discharge is less than 30 minutes. Job ID: [id number]
--- NOTE | 2019-09-24 01:59 | PQF ---
BRYANNA VALLE ZBIGNIEW A MD [id number] [id number] CLINICAL DOCUMENTATION CLARIFICATION FORM: POST DISCHARGE Addendum to original discharge summary date: ____ Late entry note date: __ DATE: 09/24/19 ATTN: Rambo De León Please exercise your independent, professional judgment in responding to the clarification form. Clinical indicators are provided on the bottom of this form for your review Can you please further clarify the conflicting diagnosis below? Please check appropriate box(s): Conflicting documentation was noted in the Medical Record, please clarify if patient is being treated/monitored for: [ x ] Severe Protein Calorie Malnutrition [ ] Moderate Protein Calorie Malnutrition [ ] Other diagnosis [ ] Unable to determine In addition, please specify: Present on Admission (POA): [ x ] Yes [ ] No [ ] Unable to determine For continuity of documentation, please document condition throughout progress notes and discharge summary. Thank You. CLINICAL INDICATORS - SIGNS / SYMPTOMS/ LABS Ds pg.1-Moderated PEM- POA BMI 16.6 Hospitalist PN 09/19 pg.3- Severe protein calorie malnutrition Food and nutrition services assessment 09/19- Documentation of 20lbs weight loss I the last year 12.6% in the last 5 months per EMR Food and nutrition services assessment 09/19- Food and nutrition services assessment 09/19-/p surgery for gastric ulcer perforation, gastric bypass Food and nutrition services assessment 09/19- Weight 55.52kg RISK FACTORS Acute blood loss anemia- DS pg.1 Chronic alcoholism- DS pg.1 Tobacco dependence- DS pg.1 Peptic ulcer disease TREATMENT IV fluids- MAR Dietitian consult 09/19 Weight and BMI monitoring- (This form is maintained as a part of the permanent medical record) 2014 [employer]. All Rights Reserved [email or web address] [not provided] MTDD
== END 2019-09-23 12:15 | disposition home or self-care (01) | DRG 377 ==
LOC: ERS 15:04 → IMCU/EMU 19:33 → T4-A 09-20 06:14
PROVIDERS: ADMIT Internal Medicine; ATTEND Internal Medicine
PROC: 30233N1 Transfusion of Nonautologous Red Blood Cells into Peripheral Vein, Percutaneous Approach (ICD-10-PCS; 2019-09-18)
PROC: 0W3P8ZZ Control Bleeding in Gastrointestinal Tract, Via Natural or Artificial Opening Endoscopic (ICD-10-PCS; principal; 2019-09-19)
DX: K28.4 Chronic or unspecified gastrojejunal ulcer with hemorrhage (principal); E43 Unspecified severe protein-calorie malnutrition; D62 Acute posthemorrhagic anemia; Z68.1 Body mass index [BMI] 19.9 or less, adult; F17.210 Nicotine dependence, cigarettes, uncomplicated; F10.20 Alcohol dependence, uncomplicated; Z93.1 Gastrostomy status; Z98.84 Bariatric surgery status
CPT/HCPCS: 36415; 36430; 71045; 71275; 72191; 74175; 80048; 80053; 84484; 85014; 85018; 85025; 85049; 85610; 85730; 86850; 86900; 86901; 93005; C9113; J0171; J2704; J2916; J3490; P9016

== ENCOUNTER 2019-12-11 07:18 | Day surgery (SDC) | payer MEDICARE, OTHER ==
[2019-12-10 09:52] VITALS: BMI 20.3
[~2019-12-11 07:18] MED LIST changes: +Fluorouracil 100 MG, Enoxaparin Sodium 25 MG, EPINEPHrine 0.3 MG in Ophthalmic Irrigati... IRR SCH; -ISOVUE-370 76%-LOCM 1 ML ONE
[2019-12-11] MEDS ORDERED: Cyclopentolate 1% Opth Drop 2 ML BOT ONE (07:34)
[2019-12-11] MEDS ORDERED: Phenylephrine 2.5% Ophth Soln 5 ML BOT ONE (07:34)
[2019-12-11] MEDS ORDERED: PROPOFOL 20 ML ONE (08:53)
[2019-12-11] MEDS ORDERED: Sterile Water 10 ML ONE (09:22)
[2019-12-11] MEDS ORDERED: CEFAZOLIN 1 GM VIAL ONE (14:58)
[2019-12-11] MEDS ORDERED: Triamcinolone 40 MG/ML VIAL ONE (14:58)
[2019-12-11] MEDS ORDERED: Indocyanine Green 25 MG/10 ML VIAL ONE (14:58)
[2019-12-11] MEDS ORDERED: Bupivacaine PF 0.75% SDV 10 ML ONE (14:58)
[2019-12-11] MEDS ORDERED: Enoxaparin Sodium 30 MG/0.3 ML SYRINGE ONE (14:58)
[2019-12-11] MEDS ORDERED: Lidocaine 4% PF 5 ML AMP ONE (14:58)
[2019-12-11] MEDS ORDERED: Lidocaine 1% PF 5 ML VIAL ONE (14:58)
[2019-12-11] MEDS ORDERED: Maxitrol 0.1% Opth Oint 3.5 GM TUBE ONE (14:58)
--- NOTE | 2019-12-11 14:59 | OP ---
DATE OF PROCEDURE: 12/11/2019 PREOPERATIVE DIAGNOSIS: Macular hole, right eye. POSTOPERATIVE DIAGNOSIS: Macular hole, right eye. PROCEDURE: Pars plana vitrectomy and internal limiting membrane peel, right eye. ANESTHESIA: Local with monitored anesthesia care. PROCEDURE IN DETAIL: The patient was identified in the preoperative holding area. Appropriate informed consent for the planned surgical procedure on the right eye had been obtained. The patient was transported to the operative suite. Appropriate cardiopulmonary monitoring was established. Local anesthesia was obtained using retrobulbar modified Van Lint lid block using 50:50 mixture of 4% lidocaine and 0.75% bupivacaine. The patient was prepped and draped in the usual sterile manner for ophthalmic surgery in the right eye. Lid speculum was placed in the right eye. A 27-gauge trocar was placed in the conjunctiva and sclera superotemporally, inferotemporally, and supranasally. Infusion line was placed inferotemporally. Light pipe and vitreous cutter were inserted into the eye. Core vitrectomy was performed. The posterior hyaloid face was elevated using vacuum suction. Indocyanine green dye was infused on the posterior pole x1, identifying the internal limiting membrane. This was elevated using a membrane scraper along the supratemporal arcade and peeled across the macula using end-gripping forceps in one piece. Complete air-fluid exchange was performed with 10 minutes being allowed for fluid to drain posteriorly. Indirect ophthalmoscopy was used to exam the retina 360 degrees. No holes, breaks, or tears were identified. 28% sulfur hexafluoride gas was infused into the eye. Trocars were removed and eye was noted to retain pressure well. Retrobulbar Kenalog and subconjunctival Ancef were placed. Antibiotic ointment was placed. Eye was patched and shielded. The patient was taken to postoperative recovery unit in good condition, having suffered no immediate perioperative complications. The patient was instructed to keep patch and shield on, avoid lifting or bending, followup appointment with Dr. Parra. Job ID: [id number]
== END 2019-12-11 11:25 | disposition home or self-care (01) ==
LOC: SDC 07:18
PROVIDERS: ATTEND Ophthalmology Retina Specialist
PROC: 08T43ZZ Resection of Right Vitreous, Percutaneous Approach (ICD-10-PCS; principal; 2019-12-11)
PROC: 08NE3ZZ Release Right Retina, Percutaneous Approach (ICD-10-PCS; 2019-12-11)
DX: H35.341 Macular cyst, hole, or pseudohole, right eye (principal); Z79.899 Other long term (current) drug therapy
CPT/HCPCS: 67025; J0171; J0690; J1650; J2001; J2704; J3301; J3490; J9190

== ENCOUNTER 2020-03-31 01:36 | Emergency (ER) | payer MEDICARE, OTHER ==
[2020-03-31 02:09] LABS: #Basophils 0.1 thou/uL (0.0-0.2); #Lymphocytes 1.3 thou/uL (1.20-3.40); #Monocytes 1.5 thou/uL (0.11-0.59); #Neutrophils 8.6 thou/uL (1.40-6.50); %Basophils 0.4 % (0.0-1.0); %Eosinophils 0.3 % (0.0-10.0); %Lymphocytes 11.6 % (21.0-51.0); %Neutrophils 74.7 % (42.0-75.0); Hemoglobin 15.7 g/dL (14.0-18.0); Mean Corpuscular HGB CONC 33.6 g/dL (32.0-36.0); Mean Corpuscular Hemoglobin 34.5 pg (27.0-31.0); Mean Platelet Volume 8.8 fL (7.4-10.4); Platelet Count 298 thou/uL (130-400); RBC Distribution Width 14.1 % (11.5-14.5); Red Blood Cell (RBC) Count 4.56 mill/uL (4.70-6.10); White Blood Cell (WBC) Count 11.5 thou/uL (4.8-10.8)
[2020-03-31 02:30] LABS: ALT (SGPT) Less than 7 U/L (8-55); AST (SGOT) 13 U/L (5-34); Albumin 3.8 g/dL (3.4-4.8); Alkaline Phosphatase 88 U/L (40-110); Anion Gap 14 mmol/L (10-20); BUN (Urea Nitrogen) 10 mg/dL (8.4-25.7); Bilirubin, Total 0.7 mg/dL (0.2-1.2); CK (CPK) 42 U/L (30-200); Calc. Creatinine Clearance 0 mL/min (70-130); Calcium 9.1 mg/dL (7.8-10.44); Carbon Dioxide 24 mmol/L (23-31); Chloride 101 mmol/L (98-107); Estimated GFR-MDRD 55; Globulin 3.6 g/dL (2.4-3.5); Glucose 134 mg/dL (83-110); Potassium 3.7 mmol/L (3.5-5.1); Protein, Total 7.4 g/dL (5.8-8.1); Sodium 135 mmol/L (136-145)
--- NOTE | 2020-03-31 07:56 | RAD ---
RADIOGRAPH CHEST 1 VIEW: DATE: 03/31/2020 HISTORY: 75-year-old male with chest pain FINDINGS: There are no airspace densities, pulmonary edema, pneumothorax, or cardiomegaly. The lateral costophr enic angles are sharp. IMPRESSION: No acute cardiopulmonary findings.
--- NOTE | 2020-03-31 08:02 | CT ---
PRELIMINARY REPORT/[facility]/EMERGENCY AFTER HOURS PROCEDURE EXAM: CTA Chest, With Contrast. DATE/ TIME: 03/31/2020, 3:48 AM INDICATION: Shortness of breath TECHNIQUE: During the rapid intravenous administration of 70 mL Isovue-370, helical CT of the chest was performed utilizing angiographic protocol. MPRs and multiplanar MIPs were generated and reviewed. Exam was performed using one or more of the following dose reduction techniques: automate d exposure control, adjustment of the mA and/or kV according to patient size, or use of iterative reconstruction technique. COMPARISON: CTA Chest 09/18/2019. FINDINGS: Pulmonary arterial system is well-opacified and there is no intraluminal filling defect. Main pulmonary artery measures 3.1 cm in diameter. The heart is borderline enlarged with dense calcified atheroma noted within all three coronary arteries. Left ventricular concentric hypertrophy is seen. Small pericardial effusion measures up to 1 cm in thickness anteriorly at the level of the right ventricle. The aorta is without aneurysm or dissection with mild atherosclerotic plaquing noted. Emphysematous changes are seen throughout the lungs. Mild bronchial wall thickening is noted. There is no airspace consolidation or mass. There is no pleural effusion. Imaging continues into the abdomen to the level of the left renal vein. Adrenal limb thickening bila terally suggests hyperplasia. Operative changes of bariatric surgery are seen. No upper abdominal acute pathology is evident. Spondylosis within the thoracic spine is seen. IMPRESSION: 1. No pulmonary thromboembolism. 2. Coronary atherosclerosis with left ventricular hypertrophy. 3. Dilated main pulmonary artery suggests a component of pulmonary arterial hypertension. 4. Emphysema. Mild bronchial wall thickening is compatible with a component of airway inflammation. 5. Small pericardial effusion. ELECTRONICALLY SIGNED BY: Prashanth Oviedo DO Mar 31, 2020 4:19:48 AM CDT This report is intended for review by the ordering physician only, in accordance of law. If you recei ve this report in error, please call [facility] at [phone]. FINAL REPORT EMERGENT AFTER HOURS CT ANGIOGRAM THORAX WITH IV CONTRAST AND 3-D RECONSTRUCTIONS: HISTORY: Dyspnea. Patient presents with shortness of breath for several hours. Occasional pain in center of ch est when taking a deep breath. COMPARISON: 09/18/2019 and 04/26/2019. FINDINGS: 1. No CT evidence of a pulmonary embolus. 2. Extensive vascular calcifications involving the coronary arteries and lesser extent involving the thoracic aorta. Thoracic aorta is normal in caliber without evidence of an aortic dissection. 3. Left ventricular hypertrophy. Small pericardial effusion is present. 4. Prominence of the main pulmonary artery which measures 3.1 cm in diameter. 5. Mild emphysematous changes. 6. Mild peribronchial wall thickening bilaterally which may be inflammatory in etiology. More irregul ar nonspecific thickening is seen involving the reilly of the left mainstem bronchus. 7. Postoperative changes of the stomach. 8. Findings are in agreement with preliminary report by [facility]. Transcribed Date/Time: 03/31/2020 8:38 AM
[2020-03-31] MEDS ORDERED: Iopamidol 370 76% 100 ML VIAL ONE (11:36)
--- NOTE | 2020-04-03 11:55 | EKG ---
Test Reason : Blood Pressure : / mmHG Vent. Rate : 104 BPM Atrial Rate : 104 BPM P-R Int : 156 ms QRS Dur : 138 ms QT Int : 364 ms P-R-T Axes : 078 076 057 degrees QTc Int : 478 ms Sinus tachycardia with Premature atrial complexes Right bundle branch block Abnormal ECG Confirmed by YUMIKO MEDRANO ([id number]), health editor CHRISSIE ARIAS ([id number]) on 04/03/2020 11:55:21 AM Referred By: Confirmed By:YUMIKO MEDRANO
== END 2020-03-31 04:51 | disposition home or self-care (01) ==
LOC: ERS 01:36
DX: R06.00 Dyspnea, unspecified (principal); F17.210 Nicotine dependence, cigarettes, uncomplicated
CPT/HCPCS: 71045; 71275; 80053; 82550; 84484; 85025; 85379; 93005; Q9967